=== PATIENT | female | born 1955 | race Caucasian/White ===

== ENCOUNTER 2020-11-19 07:20 | Outpatient (REF) | payer MEDICARE, SELFPAY ==
--- NOTE | ~2020-11-19 | MM_ITS ---
EXAMINATION: MM SCREENING DIGITAL BREAST TOMOSYNTHESIS, BILATERAL CLINICAL INFORMATION: Screening. Asymptomatic. The lifetime risk of breast cancer based on the Tyrer-Cuzick Model is 5%. COMPARISON: Mammography: 07/20/2019, 07/11/2019, 07/05/2018; targeted left breast ultrasound 07/20/2019 TECHNIQUE: Digital breast tomosynthesis is performed in both the craniocaudal and mediolateral oblique views along with computer-aided detection (CAD). Synthesized 2D images are generated from the tomosynthesis. Additional left MLO view is provided. FINDINGS: There are scattered areas of fibroglandular density (ACR BI-RADS breast composition Category b). Parenchymal pattern is similar to prior exams. There is no significant mass or architectural abnormality or abnormal calcifications. There is scattered fine bilateral nodularity. Nodule right 9:00 position mid depth has some peripheral calcifications again noted. The axilla and skin contours are unremarkable. MM/MM tomosynthesis screening BI IMPRESSION: No significant changes from prior exams. ASSESSMENT: BI-RADS 2: Benign RECOMMENDATION: Routine annual mammography screening. This patient's information was entered into a reminder system with a target due date for their next mammogram.
== END 2020-11-19 07:21 | disposition home or self-care (01) ==
LOC: HO.MAMMO 07:20
PROVIDERS: Visit Provider Internal Medicine
DX: Z12.31 Encounter for screening mammogram for malignant neoplasm of breast (principal)
CPT/HCPCS: 77063; 77067

== ENCOUNTER 2021-02-27 13:40 | Outpatient (REF) | payer MEDICARE, SELFPAY ==
--- NOTE | ~2021-02-27 | US_ITS ---
EXAMINATION: US VENOUS ULTRASOUND WITH DOPPLER LOWER EXTREMITY, LEFT CLINICAL INFORMATION: Left lower extremity swelling. Evaluate for a deep vein thrombosis. COMPARISON: None TECHNIQUE: Ultrasound of the deep veins is performed from the hip to the calf with compression sonography and color and pulse Doppler assessment. Spectral analysis with color-flow imaging is performed. FINDINGS: There is normal venous compression and respiratory variation and augmented flow. The visualized common femoral vein, superficial femoral vein, profunda femoral vein, popliteal vein, and the trifurcation region shows no evidence of deep venous thrombosis. There is no significant popliteal fossa cyst. If the patient's symptoms persist, followup ultrasound in 5 days 7 days might be of value to exclude proximal propagation from a non-visualized calf vein. US/US venous duplex LE LT IMPRESSION: No DVT demonstrated in the left lower extremity.
== END 2021-02-27 13:41 | disposition home or self-care (01) ==
LOC: HO.HMGCX 13:40
PROVIDERS: PCP Internal Medicine; Visit Provider Internal Medicine
DX: M79.89 Other specified soft tissue disorders (principal); E89.0 Postprocedural hypothyroidism
CPT/HCPCS: 93971

== ENCOUNTER 2021-03-08 07:39 | Outpatient (REF) | payer MEDICARE, SELFPAY ==
[2021-03-08 09:32] LABS: Alanine Aminotransferase 29 U/L (0-31); Albumin Level 4.1 g/dL (3.5-5.0); Alkaline Phosphatase 62 U/L (39-117); Anion Gap 14 (12-20); Aspartate Amino Transferase 22 U/L (5-31); Bilirubin Total 0.6 mg/dL (0.0-1.0); Blood Urea Nitrogen 26 mg/dL (9-16); Carbon Dioxide 27 mmol/L (22-29); Chloride 106 mmol/L (96-108); Cholesterol 179 mg/dL; Estimated Glomerular Filt Rate 55; Glucose Fasting 96 mg/dL (60-99); HDL Cholesterol 48 mg/dL; LDL Cholesterol Calculated 105 mg/dl; Potassium 4.5 mmol/L (3.3-5.1); Sodium 142 mmol/L (135-145); Total Protein 7.5 g/dL (6.5-8.0); Triglycerides 133 mg/dL
[2021-03-08 10:03] LABS: Thyroid Stimulating Hormone 2.73 uIU/mL (0.32-4.0)
== END 2021-03-08 07:40 | disposition home or self-care (01) ==
LOC: HO.LAB 07:39
PROVIDERS: PCP Internal Medicine; Visit Provider Internal Medicine
DX: E89.0 Postprocedural hypothyroidism (principal); E78.5 Hyperlipidemia, unspecified
CPT/HCPCS: 36415; 80053; 80061; 84443

== ENCOUNTER 2021-09-16 07:43 | Outpatient (REF) | payer MEDICARE, SELFPAY ==
[2021-09-16 08:43] LABS: Alanine Aminotransferase 22 U/L (0-31); Albumin Level 4.2 g/dL (3.5-5.0); Alkaline Phosphatase 67 U/L (39-117); Anion Gap 13 (12-20); Aspartate Amino Transferase 23 U/L (5-31); Bilirubin Total 0.6 mg/dL (0.0-1.0); Blood Urea Nitrogen 25 mg/dL (9-16); Calcium 10.8 mg/dL (8.4-10.2); Carbon Dioxide 30 mmol/L (22-29); Chloride 106 mmol/L (96-108); Cholesterol 163 mg/dL; Estimated Glomerular Filt Rate 55; Glucose Fasting 103 mg/dL (60-99); HDL Cholesterol 49 mg/dL; LDL Cholesterol Calculated 89 mg/dl; Potassium 4.7 mmol/L (3.3-5.1); Sodium 144 mmol/L (135-145); Total Protein 7.6 g/dL (6.5-8.0); Triglycerides 129 mg/dL
== END 2021-09-16 07:44 | disposition home or self-care (01) ==
LOC: HO.LAB 07:43
PROVIDERS: PCP Internal Medicine; Visit Provider Internal Medicine
DX: E78.5 Hyperlipidemia, unspecified (principal); E89.0 Postprocedural hypothyroidism
CPT/HCPCS: 36415; 80053; 80061; 84443

== ENCOUNTER 2021-09-29 09:16 | Outpatient (REF) | payer MEDICARE, SELFPAY ==
[2021-09-29 10:27] LABS: Alanine Aminotransferase 38 U/L (0-31); Albumin Level 4.1 g/dL (3.5-5.0); Alkaline Phosphatase 61 U/L (39-117); Anion Gap 14 (12-20); Aspartate Amino Transferase 29 U/L (5-31); Bilirubin Total 0.5 mg/dL (0.0-1.0); Blood Urea Nitrogen 18 mg/dL (9-16); Calcium 10.1 mg/dL (8.4-10.2); Carbon Dioxide 27 mmol/L (22-29); Chloride 105 mmol/L (96-108); Estimated Glomerular Filt Rate > 60; Glucose Random 100 mg/dL (60-115); Potassium 4.6 mmol/L (3.3-5.1); Sodium 141 mmol/L (135-145); Total Protein 7.4 g/dL (6.5-8.0)
[2021-09-29 10:49] LABS: Vitamin D 25-OH Total 29.2 ng/mL (>30)
[2021-10-02 09:41] LABS: Calcium, Ionized 5.2 mg/dL (4.8-5.6)
[2021-10-02 16:12] LABS: PTHI 24 pg/mL (16-77)
== END 2021-09-29 09:17 | disposition home or self-care (01) ==
LOC: HO.LAB 09:16
PROVIDERS: PCP Internal Medicine; Visit Provider Internal Medicine
DX: E83.52 Hypercalcemia (principal)
CPT/HCPCS: 36415; 80053; 82306; 82330; 83970

== ENCOUNTER 2021-11-25 07:17 | Outpatient (REF) | payer MEDICARE, SELFPAY ==
--- NOTE | ~2021-11-25 | MM_ITS ---
EXAMINATION: MM SCREENING DIGITAL BREAST TOMOSYNTHESIS, BILATERAL CLINICAL INFORMATION: Screening. Asymptomatic. No known family history breast cancer. The lifetime risk of breast cancer based on the Tyrer-Cuzick Model is 4%. COMPARISON: Mammography: 11/19/2020, 07/20/2019, 07/11/2019, 07/05/2018, 01/01/2018, 06/05/2017, 05/11/2015; left breast ultrasound 07/20/2019, 01/01/2018, 06/11/2017. TECHNIQUE: Digital breast tomosynthesis is performed in both the craniocaudal and mediolateral oblique views along with computer-aided detection (CAD). Synthesized 2D images are generated from the tomosynthesis. Additional right MLO view is provided. FINDINGS: There are scattered areas of fibroglandular density (ACR BI-RADS breast composition Category b). There is a fine fibronodular parenchymal pattern with additional small dominant smooth circumscribed nodularity, more numerous on left. No architectural abnormality. No abnormal calcifications. The axilla and skin contours are unremarkable. Left breast has 2 circumscribed dominant nodules each around 8 mm increased from prior studies, at central anterior 12:00 and central 1:00, respectively. Suspect probable cysts. MM/MM tomosynthesis screening BI IMPRESSION: Left: -Dominant nodularity increased central anterior 12:00 and mid 1:00, likely cysts. Right: -No significant change from prior exams. ASSESSMENT: BI-RADS 0: Incomplete - Need Additional Imaging Evaluation RECOMMENDATION: 1. Targeted ultrasound left breast with 2 dominant nodules, likely cysts. 2. Radiology department staff will contact the patient for additional imaging. This patient's information was entered into a reminder system with a target due date for their next mammogram.
== END 2021-11-25 07:18 | disposition home or self-care (01) ==
LOC: HO.MAMMO 07:17
PROVIDERS: PCP Internal Medicine; Visit Provider Internal Medicine
DX: Z12.31 Encounter for screening mammogram for malignant neoplasm of breast (principal)
CPT/HCPCS: 77063; 77067

== ENCOUNTER 2022-01-04 14:48 | Outpatient (REF) | payer MEDICARE, SELFPAY ==
--- NOTE | ~2022-01-04 | US_ITS ---
EXAMINATION: US DIAGNOSTIC ULTRASOUND BREAST, LEFT CLINICAL INFORMATION: Recall from screening for 2 circumscribed dominant nodules each around 0.8 cm central anterior 12:00 and central 1:00 left breast. COMPARISON: Mammography 11/25/2021, 11/19/2020, 07/20/2019, 07/11/2019, ultrasound left breast 07/20/2019, 12/13/2017, 06/11/2017. TECHNIQUE: Ultrasound left breast is performed with real-time lopez scale imaging and color Doppler without and with harmonics. Imaging is targeted to the upper quadrants. FINDINGS: The 2 dominant nodules noted on mammography are identified on ultrasound as incidental cysts, each just under 1 cm, anechoic, smooth, with increased through-transmission of sound. No associated color flow. They reside at 12:00 and 1:00 positions. There is no solid mass or architectural abnormality or duct ectasia. Results are discussed with the patient at time of visit. US/US breast LT limited IMPRESSION: There are 2 simple cysts under 1 cm upper left breast 12:00 and 1:00 position corresponding to the recent mammography. ASSESSMENT: BI-RADS 2: Benign RECOMMENDATION: Routine annual mammography screening. This patient's information was entered into a reminder system with a target due date for their next mammogram.
== END 2022-01-04 14:49 | disposition home or self-care (01) ==
LOC: HO.MAMMO 14:48
PROVIDERS: PCP Internal Medicine; Visit Provider Internal Medicine
DX: N63.25 Unspecified lump in the left breast, overlapping quadrants (principal); N63.21 Unspecified lump in the left breast, upper outer quadrant
CPT/HCPCS: 76642

== ENCOUNTER 2022-04-14 07:04 | Outpatient (REF) | payer MEDICARE, SELFPAY ==
[2022-04-14 08:28] LABS: Alanine Aminotransferase 39 U/L (0-31); Albumin Level 4.4 g/dL (3.5-5.0); Alkaline Phosphatase 71 U/L (39-117); Anion Gap 19 (12-20); Aspartate Amino Transferase 30 U/L (5-31); Bilirubin Total 0.6 mg/dL (0.0-1.0); Blood Urea Nitrogen 15 mg/dL (9-16); Calcium 10.2 mg/dL (8.4-10.2); Carbon Dioxide 24 mmol/L (22-29); Chloride 105 mmol/L (96-108); Cholesterol 175 mg/dL; Estimated Glomerular Filt Rate 57; Glucose Fasting 102 mg/dL (60-99); HDL Cholesterol 40 mg/dL; LDL Cholesterol Calculated 99 mg/dl; Potassium 4.5 mmol/L (3.3-5.1); Sodium 143 mmol/L (135-145); Total Protein 7.9 g/dL (6.5-8.0); Triglycerides 184 mg/dL
[2022-04-14 08:49] LABS: Thyroid Stimulating Hormone 1.87 uIU/mL (0.32-4.0)
== END 2022-04-14 07:05 | disposition home or self-care (01) ==
LOC: HO.LAB 07:04
PROVIDERS: PCP Internal Medicine; Visit Provider Internal Medicine
DX: E89.0 Postprocedural hypothyroidism (principal); E78.5 Hyperlipidemia, unspecified; E83.52 Hypercalcemia
CPT/HCPCS: 36415; 80053; 80061; 84443

== ENCOUNTER 2022-09-21 15:22 | Outpatient (REF) | payer MEDICARE, SELFPAY ==
[2022-09-21 16:25] LABS: Influenza A PCR NEGATIVE (Negative); Influenza B PCR NEGATIVE (Negative); Resp Syncy Virus RNA Qual PCR NEGATIVE (Negative); SARS COV2 PCR INHOUSE POSITIVE (Negative)
== END 2022-09-21 15:23 | disposition home or self-care (01) ==
LOC: HO.LAB 15:22
PROVIDERS: PCP Internal Medicine; Visit Provider Internal Medicine
DX: Z20.822 Contact with and (suspected) exposure to COVID-19 (principal); R09.89 Other specified symptoms and signs involving the circulatory and respiratory systems
CPT/HCPCS: 0241U

== ENCOUNTER 2022-10-13 07:01 | Outpatient (REF) | payer MEDICARE, SELFPAY ==
[2022-10-13 09:13] LABS: Alanine Aminotransferase 23 U/L (0-31); Albumin Level 4.3 g/dL (3.5-5.0); Alkaline Phosphatase 68 U/L (39-117); Anion Gap 15 (12-20); Aspartate Amino Transferase 23 U/L (5-31); Bilirubin Total 0.7 mg/dL (0.0-1.0); Blood Urea Nitrogen 20 mg/dL (9-16); Carbon Dioxide 28 mmol/L (22-29); Chloride 106 mmol/L (96-108); Cholesterol 193 mg/dL; Estimated Glomerular Filt Rate > 60; Glucose Fasting 104 mg/dL (60-99); HDL Cholesterol 43 mg/dL; LDL Cholesterol Calculated 108 mg/dl; Sodium 145 mmol/L (135-145); Total Protein 7.6 g/dL (6.5-8.0); Triglycerides 211 mg/dL
[2022-10-13 09:36] LABS: Free T4 (Free Thyroxine) 1.09 ng/dL (0.71-1.85); Thyroid Stimulating Hormone 1.76 uIU/mL (0.32-4.0)
== END 2022-10-13 07:02 | disposition home or self-care (01) ==
LOC: HO.LAB 07:01
PROVIDERS: PCP Internal Medicine; Visit Provider Internal Medicine
DX: E89.0 Postprocedural hypothyroidism (principal); E78.5 Hyperlipidemia, unspecified
CPT/HCPCS: 36415; 80053; 80061; 84439; 84443

== ENCOUNTER 2022-12-15 07:22 | Outpatient (REF) | payer MEDICARE, SELFPAY ==
--- NOTE | ~2022-12-15 | MM_ITS ---
EXAMINATION: MM SCREENING DIGITAL BREAST TOMOSYNTHESIS, BILATERAL CLINICAL INFORMATION: Screening. Asymptomatic. The lifetime risk of breast cancer based on the Tyrer-Cuzick Model is 5%. COMPARISON: Multiple prior mammography exams including most recent 11/25/2021; ultrasound left 01/04/2022. TECHNIQUE: Digital breast tomosynthesis is performed in both the craniocaudal and mediolateral oblique views along with computer-aided detection (CAD). Synthesized 2D images are generated from the tomosynthesis. FINDINGS: There are scattered areas of fibroglandular density (ACR BI-RADS breast composition Category b). There is fibronodular parenchymal pattern with scattered small smooth waxing and waning nodularity. No significant mass. No architectural abnormality. Stable grouped calcifications anterior 9:00 right breast overlies a small stable nodule. There are scattered vascular calcifications. No abnormal calcifications. The axilla and skin contours are unremarkable. No significant changes from prior exam. MM/MM tomosynthesis screening BI IMPRESSION: No mammographic evidence of malignancy. ASSESSMENT: BI-RADS 2: Benign RECOMMENDATION: Routine annual mammography screening. This patient's information was entered into a reminder system with a target due date for their next mammogram.
== END 2022-12-15 07:23 | disposition home or self-care (01) ==
LOC: HO.MAMMO 07:22
PROVIDERS: PCP Internal Medicine; Visit Provider Internal Medicine
DX: Z12.31 Encounter for screening mammogram for malignant neoplasm of breast (principal)
CPT/HCPCS: 77063; 77067

== ENCOUNTER 2023-03-15 07:54 | Outpatient (AMB) | payer MEDICARE, SELFPAY ==
--- NOTE | 2023-03-15 08:35 | AM.OFFVISMDC ---
Intake Vital Signs 03/15/23 08:36 Height 5 ft 5 in Weight 216 lb BMI 35.9 BP 130/88 Blood Pressure Location Lt brachial Position Sitting Pulse 80 Pulse Source Pulse Oximeter Pulse Oximetry (%) 97 Oxygen Delivery Method Room Air Intake Visit Reasons: SWV [id number] Allergies No Known Allergies Allergy (Verified 03/15/23 08:47) Medication List - Last Reconciled 03/15/23 by GLORIA Moralez losartan 50 mg PO DAILY 90 days lovastatin 40 mg PO DAILY 90 days HPI SWV G0439 HPI Details Patient is a 68-year-old female who presents today for subsequent wellness visit. Patient of Dr. Driver. Today we discussed patient's need for bone density screening. Mammogram normal 12/2022. Up-to-date with immunizations. Zoe of care was reviewed with the patient and she was provided with a screening schedule. Patient has a healthcare proxy in place and she will provide office with a copy, MOLST form is on file. [facility] Medical History (Updated 03/15/23 @ 08:52 by GLORIA Moralez) Bilateral primary osteoarthritis of knee Dyslipidemia Elevated blood pressure reading in office without diagnosis of hypertension Hypercalcemia Left leg swelling Obese Postoperative hypothyroidism Surgical History (Updated 03/15/23 @ 09:02 by GLORIA Moralez) History of colonoscopy History of thyroid surgery History of tonsillectomy and adenoidectomy Family History Father CVD (cardiovascular disease) CHF (congestive heart failure) Mother Chronic mental illness Alzheimers disease Family/Other FH: mental illness Social History Housing: House Alcohol intake: never Patient Tobacco Use Status: Never used Tobacco e-Cigarette/Vaping Use: Never Used Second Hand Smoke Exposure: No service: No Current occupational status: employed and retired Current occupational exposures/hazards: No Cognitive needs: No Hearing needs: No Vision needs: Yes Questionnaire Medicare Wellness Checkup What [age] 65-69 What gender do you identify with?: female During the past 4 weeks, how much have you been bothered by emotional problems such as feeling anxious, depressed, irritable, sad or downhearted, and blue?: not at all During the past 4 weeks, has your physical & emotional health limited your social activities with family, friends, neighbors, or groups?: not at all During the past 4 weeks, how much bodily pain have you generally had?: very mild pain During the past 4 weeks, was someone available to help you if you needed & wanted help?: yes, quite a bit During the past 4 weeks, what was the hardest physical activity you could do for at least 2 minutes?: moderate Can you get to places out of walking distance without help? (For eg., can you travel alone on buses, taxis or drive your car?): Yes Can you go shopping for groceries or clothes without someone's help?: Yes Can you prepare your own meals?: Yes Can you do your housework without help?: Yes Because of any health problems, do you need the help of another person with your personal care needs such as eating, bathing, dressing or getting around the house?: No Can you handle your own money without help?: Yes During the past 4 weeks, how would you rate your health in general?: good During the past 4 weeks how have things been going for you?: pretty well Are you having difficulties driving your car?: no Do you always fasten your seat belt when you are in a car?: yes, usually During past 4 weeks, have you been bothered by the following: never: Falling or dizzy when standing up, Sexual problems?, Trouble eating well?, Teeth or denture problems? and Problems using the telephone? and seldom: Tiredness or fatigue? Have you fallen 2 or more times in the past year?: No Are you afraid of falling?: No Are you a smoker?: no During the past 4 weeks, how many drinks of wine, beer, or other alcoholic beverages did you have?: no alcohol at all Do you exercise for about 20 minutes 3 or more times a week?: yes, some of the time Have you been given information to help with the following?: yes: Hazards in your house that might hurt you? and yes: Keeping track of your medications? How often do you have trouble taking medicines the way you have been told to take them?: I always take medicine as prescribed How confident are you that you can control & manage most of your health problems?: very confident What is your race?: White Mini Mental State Exam (MMSE) Orientation What is the (year) (season) (date) (day) (month)?: year, season, date, day and month Score Score: 5 Activity of Daily Living Bathing - sponge bath, tub bath or shower: receives no assistance (gets in/out by self, if usual bathing means Dressing - getting clothes from closets & drawers, including inner/outer garments & fasteners.: gets clothes & gets completely dressed without help Toileting - going to the 'toilet room' for urine/bowel elimination & cleaning self/arranging clothes: goes to toilet room, cleans self, arranges clothes without help Transfer: moves in & out of bed and chair without help (may use support object) Continence: controls urination/bowel movements completely by self Feeding: feeds self without help Total Score: 0 Information obtained from: patient Using telephone: independent Traveling: independent Shopping: independent Preparing meals: independent Housework: independent Taking medicine: independent Managing money: independent PHQ-9 Over the last 2 weeks, how often have you been bothered by any of the following problems? 1. Little interest or pleasure in doing things: not at all 2. Feeling down, depressed, or hopeless: not at all 3. Trouble falling or staying asleep, or sleeping too much: not at all 4. Feeling tired or having little energy: several days 5. Poor appetite or overeating: not at all 6. Feeling bad about yourself - or that you are a failure or have let yourself or your family down: not at all 7. Trouble concentrating on things, such as reading the newspaper or watching television: not at all 8. Moving or speaking so slowly that other people could have noticed. Or the opposite - being so fidgety or restless that you have been moving around a lot more than usual: not at all 9. Thoughts that you would be better off or of hurting yourself in some way: not at all Total score: 1 Depression Screening Interpretation: Negative 51506 - PHQ-9 Billing: Yes Source: Developed by Drs. Mauri Wilks, Thea Chew, Wyatt Alicea and colleagues, with an educational gillian from [employer]. Physical Exam Vital Signs: Last Vital Signs Pulse 80 03/15/23 08:36 BP 130/88 03/15/23 08:36 Pulse Ox 97 03/15/23 08:36 Oxygen Delivery Method Room Air 03/15/23 08:36 BMI result Body Mass Index 35.9 Const General: cooperative and no acute distress Orientation/consciousness: patient oriented x3 HEENT Other: Whisper test: pass Neuro Other: Balance: Normal Get up and walk: able to Romberg: negative Tandem gait: able to General: patient oriented x3 Assessment & Plan Assessment & Plan (1) Post-menopausal: Code(s): Z78.0 - Asymptomatic menopausal state (2) Impaired glucose tolerance: Code(s): R73.02 - Impaired glucose tolerance (oral) Plan: Fasting glucose 104 10/2022 Continue to monitor (3) Essential hypertension: Code(s): I10 - Essential (primary) hypertension Plan: Goal BP equal or less than 140/90 Continue losartan Low-sodium diet and weight loss (4) Medicare annual wellness visit, subsequent: Code(s): Z00.00 - Encounter for general adult medical examination without abnormal findings (5) Bilateral primary osteoarthritis of knee: Code(s): M17.0 - Bilateral primary osteoarthritis of knee Plan: Continue to follow-up with orthopedics (6) Obese: Code(s): E66.9 - Obesity, unspecified Plan: Healthy food choices and exercise as tolerated (7) Dyslipidemia: Code(s): E78.5 - Hyperlipidemia, unspecified Plan: Continue lovastatin Low-cholesterol diet (8) Postoperative hypothyroidism: Code(s): E89.0 - Postprocedural hypothyroidism Plan: Continue to follow-up with [facility] endocrinology Orders: Orders XR DEXA axial skeleton Today Z78.0 - Asymptomatic menopausal state Quality Reporting (2019) Depression/Bipolar (159/160/161/177) PHQ-9: Total score: 1 Coding Level of Care Code Medicare Subsequent (G0439) Diagnoses Post-menopausal Z78.0 Impaired glucose tolerance R73.02 Essential hypertension I10 Medicare annual wellness visit, subsequent Z00.00 Bilateral primary osteoarthritis of knee M17.0 Obese E66.9 Dyslipidemia E78.5 Postoperative hypothyroidism E89.0 CPT Codes Advance Care Planning - Advance Care Planning discussion: On file, no changes ([id number]) Advance Care Planning - Time spent: 1-15 minutes, on File ([id number]) Advance Care Planning Advance Care Planning discussion: On file, no changes Date of discussion: 03/15/23 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
[2023-03-15 08:36] VITALS: BP 130/88; PULSE 80; O2SAT 97; BMI 35.9
== END 2023-03-15 08:58 | disposition home or self-care (01) ==
PROVIDERS: PCP Internal Medicine; Visit Provider Nurse Practitioner Family
DX: Z00.00 Encounter for general adult medical examination without abnormal findings (principal); Z78.0 Asymptomatic menopausal state; R73.02 Impaired glucose tolerance (oral); I10 Essential (primary) hypertension; M17.0 Bilateral primary osteoarthritis of knee; E66.9 Obesity, unspecified; E78.5 Hyperlipidemia, unspecified; E89.0 Postprocedural hypothyroidism
CPT/HCPCS: 1123F; G0439

== ENCOUNTER 2023-03-28 13:54 | Outpatient (REF) | payer MEDICARE, SELFPAY ==
--- NOTE | ~2023-03-28 | MM_ITS ---
EXAMINATION: BONE DENSITOMETRY CLINICAL INDICATION: Asymptomatic menopausal state. COMPARISON: This is the patient's baseline examination. TECHNIQUE: Using a Vitals (vitals.com) DXA System (software version: 13.1) manufactured by [employer], dual-energy x-ray absorptiometry was performed of the lumbar spine and left hip. The images are of good technical quality. Summary results are attached. FINDINGS: LEFT FEMUR, NECK: BMD 0.976 g/cm2, Z-score 0.4, T-score -0.4, normal. LEFT FEMUR, TOTAL: BMD 1.088 g/cm2, Z-score 1.2, T-score 0.6, normal. AP SPINE L1-L4 (excluding L3): The data of L1-L4 has been changed to exclude the L3 vertebral body, because degenerative sclerosis at this level may cause overestimation of lumbar spine density. BMD 1.234 g/cm2, Z-score 1.1, T-score 0.5, normal. IDENTIFIED RISK FACTORS: Menopause. HISTORY OF FRACTURE: None listed. MEDICATIONS: Multivitamin. MM/XR DEXA axial skeleton IMPRESSION: 1. DIAGNOSIS: Normal bone density based on the lowest T-score value of -0.4 in the femoral neck applying World Health Organization criteria. 2. 10-YEAR FRACTURE RISK PREDICTION, FRAX: According to the guidelines, FRAX calculation should only be performed on patients in the osteopenia bone density category. Therefore, FRAX was not performed on this patient. 3. Treatment Recommendations: NOF guidelines recommend consideration for treatment in postmenopausal women and men age 50 and older presenting with the following: -A hip or vertebral (clinical or morphometric) fracture. -T-score less than or equal to -2.5 at the femoral neck or spine after appropriate evaluation to exclude secondary causes. -Low bone mass at the hip or spine and a 10-year fracture probability by FRAX of greater than or equal to 3% for hip fracture or greater than or equal to 20% for major osteoporotic fracture based on the [place] adapted WHO algorithm. 4. Other Recommendations: All treatment decisions require clinical judgment and consideration of individual patient factors, including patient preferences, comorbidities, previous drug use, risk factors not captured in the FRAX model (e.g. frailty, falls, vitamin D deficiency, increased bone turnover, interval significant decline in bone density) and possible under or overestimation of fracture risk by FRAX. FUTURE SCAN RECOMMENDATION: People with diagnosed cases of osteoporosis or at high risk for fracture should have regular bone mineral density tests. For patients eligible for Medicare, routine testing is allowed once every 2 years. The testing frequency can be increased to one year for patients who have rapidly progressing disease, those who are receiving or discontinuing medical therapy to restore bone mass, or have additional risk factors.
== END 2023-03-28 13:55 | disposition home or self-care (01) ==
LOC: HO.MAMMO 13:54
PROVIDERS: PCP Internal Medicine; Visit Provider Nurse Practitioner Family
DX: Z13.820 Encounter for screening for osteoporosis (principal); Z78.0 Asymptomatic menopausal state
CPT/HCPCS: 77080

== ENCOUNTER → 2023-03-28 14:30 | Outpatient (BNV) | payer MEDICARE, SELFPAY | PROVIDERS: PCP Internal Medicine; Visit Provider Radiology Diagnostic Radiology | DX: Z78.0 Asymptomatic menopausal state (principal) | CPT/HCPCS: 77080 ==

== ENCOUNTER 2023-04-17 15:44 | Outpatient (AMB) | payer MEDICARE, SELFPAY ==
--- NOTE | 2023-04-17 15:48 | MHC.PC.OV ---
Vital Signs 04/17/23 15:49 Height 5 ft 5 in Weight 214 lb BMI 35.6 BP 128/70 Blood Pressure Location Lt brachial Position Sitting Pulse 106 H Pulse Source Auscultation Intake Visit Reasons: bp Intake Note: Patient here for a follow up BP Ginning Operator Required: No Accompanied by: Self / Same As Patient Allergies No Known Allergies Allergy (Verified 04/17/23 15:55) Medication List - Last Reconciled 04/17/23 by Marilou Reed MD losartan 50 mg PO DAILY 90 days lovastatin 40 mg PO DAILY 90 days Tobacco use date assessed: 07/19/22 Fall risk assessment: No Falls in past year Last assessed Fall Risk: 04/17/23 Dental Screening Dental Screen Date: 04/17/23 Did you have a dental visit in the last 12 months?: Yes Did you have a dental problem in the last 6 months where you did not have access to dental care?: No Was dental information given to patient?: Patient has dentist HPI HPI Comments History of Present Illness Details This is a 68-year-old female with hypertension and dyslipidemia that comes today for follow-up on blood pressure. Compliant with medications. Denies any chest pain or shortness of breath. Blood pressure stable. Last cholesterol was well control. [facility] Medical History Hypercalcemia Bilateral primary osteoarthritis of knee Elevated blood pressure reading in office without diagnosis of hypertension Left leg swelling Obese Dyslipidemia Postoperative hypothyroidism Surgical History History of colonoscopy History of thyroid surgery History of tonsillectomy and adenoidectomy Family History Father CVD (cardiovascular disease) CHF (congestive heart failure) Mother Chronic mental illness Alzheimers disease Family/Other FH: mental illness Social History Housing: House Alcohol intake: never Patient Tobacco Use Status: Never used Tobacco e-Cigarette/Vaping Use: Never Used Second Hand Smoke Exposure: No service: No Current occupational status: employed and retired Current occupational exposures/hazards: No Cognitive needs: No Hearing needs: No Vision needs: Yes Questionnaire Thrive Questionnaire Date Thrive assessed: 07/19/22 BALBIR-7 AMB Questionnaire BALBIR-7 Date BALBIR - 7 assessed: 07/19/22 Source: Developed by Drs. Mauri Wilks, Thea Chew, Wyatt Alicea and colleagues, with an educational gillian from [employer]. Review of Systems Const All systems reviewed & are unremarkable except as noted in HPI and below Eyes Reports no additional complaints, Denies change in vision and Denies other visual disturbances Card Denies chest pain at rest, Denies chest pain with activity, Denies edema, Denies irregular heart rhythm, Denies claudication, Denies dyspnea, Denies dyspnea on exertion, Denies orthopnea, Denies paroxysmal nocturnal dyspnea and Denies slow heart rate Resp Denies cough, Denies dyspnea and Denies dyspnea on exertion GI Denies abdominal pain, Denies change in bowel habits, Denies excessive flatus, Denies nausea and Denies vomiting Denies urinary incontinence, Denies urinary hesitancy and Denies urinary urgency Musc Denies abnormal gait, Denies atrophy, Denies deformity and Denies limited range of motion Skin/Breast Denies bleeding lesions, Denies changing lesions and Denies rash Neuro Denies abnormal gait and Denies lack of coordination Physical exam (Primary Care) Vital Signs: Last Vital Signs BP 128/70 04/17/23 15:49 BMI result Body Mass Index 35.6 Tobacco/Smoking Status: Tobacco use Status Tobacco use date assessed 07/19/22 04/17/23 15:51 Patient Tobacco Use Status Never used Tobacco 04/17/23 15:51 e-Cigarette/Vaping Use Never Used 04/17/23 15:51 Thrive Assessment: Date of Thrive Assessment Date Thrive assessed 07/19/22 04/17/23 15:51 Eyes General: appearance normal, both eyes and all related structures Eyelids: Yes eyelids normal Conjunctivae: conjunctivae normal Neck Neck: Yes normal visual inspection and Yes supple Resp Effort & Inspection: normal respiratory effort Auscultation: clear to auscultation bilaterally Cardio Jugular venous distension: no JVD Rate: regular rate Rhythm: regular rhythm Heart sounds: S1 normal heart sound present and S2 normal heart sound present Extrem General: Yes full ROM Assessment and Plan Assessment & Plan (1) Essential hypertension: Code(s): I10 - Essential (primary) hypertension Plan: Continue losartan. Blood pressure goal is equal or less than 130/80. (2) Dyslipidemia: Code(s): E78.5 - Hyperlipidemia, unspecified Plan: Continue statins. Coding Level of Care Code Est Pt Level 3 (79214) Diagnoses Essential hypertension I10 Dyslipidemia E78.5 Time Spent (min) 18
[2023-04-17 15:49] VITALS: BP 128/70; PULSE 106; BMI 35.6
== END 2023-04-17 16:02 | disposition home or self-care (01) ==
PROVIDERS: PCP Internal Medicine; Visit Provider Internal Medicine
DX: I10 Essential (primary) hypertension (principal); E78.5 Hyperlipidemia, unspecified
CPT/HCPCS: 99213

== ENCOUNTER 2023-08-26 10:30 | Outpatient (REF) | payer MEDICARE, SELFPAY ==
[2023-08-26 11:38] VITALS: BP 180/86; PULSE 93; RESP 17; TEMP 36.6; O2SAT 98
[2023-08-26 13:44] VITALS: BMI 33.5
== END 2023-08-26 10:31 | disposition home or self-care (01) ==
LOC: HO.MS 10:30
PROVIDERS: PCP Internal Medicine; Visit Provider Ophthalmology
DX: H00.11 Chalazion right upper eyelid (principal); Z53.9 Procedure and treatment not carried out, unspecified reason

== ENCOUNTER 2023-10-28 07:44 | Outpatient (AMB) | payer MEDICARE, SELFPAY ==
[2023-10-28 07:45] VITALS: BP 136/80; BMI 36.7
--- NOTE | 2023-10-28 07:45 | MHC.PC.OV ---
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: No Accompanied by: Self / Same As Patient Allergies No Known Allergies Allergy (Verified 10/28/23 07:48) Medication List - Last Reconciled 10/28/23 by Marilou Reed MD losartan 50 mg PO DAILY 90 days lovastatin 40 mg PO DAILY 90 days Tobacco use date assessed: 10/28/23 Fall risk assessment: No Falls in past year Last assessed Fall Risk: 10/28/23 Dental Screening Dental Screen Date: 10/28/23 Did you have a dental visit in the last 12 months?: Yes Did you have a dental problem in the last 6 months where you did not have access to dental care?: No Was dental information given to patient?: Patient has dentist HPI HPI Comments History of Present Illness Details This is a 68-year-old female with hypertension and dyslipidemia that comes today for follow-up on her conditions. Blood pressure stable. Last cholesterol was well control and this will be repeated for the next office visit. She denies any chest pain or shortness of breath. She is obese with a BMI of 36.7 and was advised to do diet and exercise to reach BMI goal less than 30. [facility] Medical History Hypercalcemia Bilateral primary osteoarthritis of knee Elevated blood pressure reading in office without diagnosis of hypertension Left leg swelling Obese Dyslipidemia Postoperative hypothyroidism Surgical History History of colonoscopy History of thyroid surgery History of tonsillectomy and adenoidectomy Family History Father CVD (cardiovascular disease) CHF (congestive heart failure) Mother Chronic mental illness Alzheimers disease Family/Other FH: mental illness Social History Housing: House Alcohol intake: never Patient Tobacco Use Status: Never used Tobacco e-Cigarette/Vaping Use: Never Used Second Hand Smoke Exposure: No service: No Current occupational status: employed and retired Current occupational exposures/hazards: No Cognitive needs: No Hearing needs: No Vision needs: Yes Questionnaire PHQ-9 Over the last 2 weeks, how often have you been bothered by any of the following problems? 1. Little interest or pleasure in doing things: not at all 2. Feeling down, depressed, or hopeless: not at all 3. Trouble falling or staying asleep, or sleeping too much: not at all 4. Feeling tired or having little energy: not at all 5. Poor appetite or overeating: not at all 6. Feeling bad about yourself - or that you are a failure or have let yourself or your family down: not at all 7. Trouble concentrating on things, such as reading the newspaper or watching television: not at all 8. Moving or speaking so slowly that other people could have noticed. Or the opposite - being so fidgety or restless that you have been moving around a lot more than usual: not at all 9. Thoughts that you would be better off or of hurting yourself in some way: not at all Total score: 0 Depression Screening Interpretation: Negative Depression Screening Done: Yes 47426 - PHQ-9 Billing: Yes Source: Developed by Drs. Mauri Wilks, Thea Chew, Wyatt Alicea and colleagues, with an educational gillian from [employer]. Thrive Questionnaire Date Thrive assessed: 10/28/23 I am a: Patient What is your living situation today?: I have a steady place to live Within the past 12 months, did the food you bought not last and you didn't have the money to get more?: Never true Within the past 12 months, did you worry whether your food would run out before you got money to buy more?: Never true Do you have trouble paying for medicines?: No Do you have trouble getting transportation to medical appointments?: No Do you have trouble paying your heating and electricity bill?: No Do you have trouble taking care of your child, family member or friend?: No Do you have trouble with day-to-day activities such as bathing, preparing meals, shopping, managing finances, etc.?: No Are you currently unemployed and looking for a job?: No Are you interested in more education?: No Please select the resources that you would like help with: None Currently or been in a relationship where the following occur: no concerns reported THRIVE Score: 0 AUDIT C Alcohol Use Questionnaire (AUDIT-C) 1. How often do you have a drink containing alcohol?: Never Total Score: 0 BALBIR-7 AMB Questionnaire BALBIR-7 Date BALBIR - 7 assessed: 10/28/23 Feeling nervous, anxious, or on edge: 0 = Not at all Not being able to stop or control worryin = Not at all Worrying too much about different things: 0 = Not at all Trouble relaxin = Not at all Being so restless that it is hard to sit still: 0 = Not at all Becoming easily annoyed or irritable: 0 = Not at all Feeling afraid as if something awful might happen: 0 = Not at all Total BALBIR-7 score (0-4 normal; 5-9 mild; 10-14 moderate; 15-21 severe): 0 Source: Developed by Drs. Mauri Wilks, Thea Chew, Wyatt Alicea and colleagues, with an educational gillian from [employer]. BALBIR-7 Assessment Billing BALBIR-7 Assessment Tool: BALBIR-7 Assessment 09893 Review of Systems Const All systems reviewed & are unremarkable except as noted in HPI and below Eyes Reports no additional complaints, Denies change in vision and Denies other visual disturbances Card Denies chest pain at rest, Denies chest pain with activity, Denies edema, Denies irregular heart rhythm, Denies claudication, Denies dyspnea, Denies dyspnea on exertion, Denies orthopnea, Denies paroxysmal nocturnal dyspnea and Denies slow heart rate Resp Denies cough, Denies dyspnea and Denies dyspnea on exertion GI Denies abdominal pain, Denies change in bowel habits, Denies excessive flatus, Denies nausea and Denies vomiting Denies urinary incontinence, Denies urinary hesitancy and Denies urinary urgency Physical exam (Primary Care) Vital Signs: Last Vital Signs BP 136/80 10/28/23 07:45 BMI result Body Mass Index 36.7 Tobacco/Smoking Status: Tobacco use Status Tobacco use date assessed 10/28/23 10/28/23 07:53 Patient Tobacco Use Status Never used Tobacco 10/28/23 07:53 e-Cigarette/Vaping Use Never Used 10/28/23 07:53 PHQ-9: PHQ-9 Score PHQ-9: Total score 0 10/28/23 07:53 Depression Screening Interpretation: Negative Thrive Assessment: Date of Thrive Assessment Date Thrive assessed 10/28/23 10/28/23 07:53 Currently or been in a relationship where the following occur: no concerns reported Resp Effort & Inspection: normal respiratory effort Auscultation: clear to auscultation bilaterally Cardio Jugular venous distension: no JVD Rate: regular rate Rhythm: regular rhythm Heart sounds: S1 normal heart sound present and S2 normal heart sound present Extrem General: Yes full ROM Assessment and Plan Assessment & Plan (1) Essential hypertension: Code(s): I10 - Essential (primary) hypertension Plan: Continue losartan 50 mg once a day. Blood pressure goal is equal or less than 130/80. (2) Dyslipidemia: Code(s): E78.5 - Hyperlipidemia, unspecified Plan: Continue statins. Orders: Orders Comprehensive [place]. Panel Fast 5 Months I10 - Essential (primary) hypertension Thyroid Stimulating Hormone 5 Months E89.0 - Postprocedural hypothyroidism Lipid Panel 5 Months E78.5 - Hyperlipidemia, unspecified Coding Level of Care Code Est Pt Level 3 (78036) Diagnoses Essential hypertension I10 Dyslipidemia E78.5 Additional Codes BALBIR-7 Assessment Billing - BALBIR-7 Assessment Tool: BALBIR-7 Assessment 35436 ([id number]) Time Spent (min) 19
== END 2023-10-28 08:03 | disposition home or self-care (01) ==
PROVIDERS: PCP Internal Medicine; Visit Provider Internal Medicine
DX: I10 Essential (primary) hypertension (principal); E78.5 Hyperlipidemia, unspecified
CPT/HCPCS: 99213

== ENCOUNTER 2023-12-30 11:44 | Outpatient (REF) | payer MEDICARE, SELFPAY | END 2023-12-30 11:45 | disposition home or self-care (01) | LOC: HO.MAMMO 11:44 | PROVIDERS: PCP Internal Medicine; Visit Provider Internal Medicine | DX: Z12.31 Encounter for screening mammogram for malignant neoplasm of breast (principal) | CPT/HCPCS: 77063; 77067 ==

== ENCOUNTER → 2023-12-30 12:00 | Outpatient (BNV) | payer MEDICARE, SELFPAY | PROVIDERS: PCP Internal Medicine; Visit Provider Radiology Diagnostic Radiology | DX: Z12.31 Encounter for screening mammogram for malignant neoplasm of breast (principal) | CPT/HCPCS: 77063; 77067 ==

== ENCOUNTER 2024-02-21 08:36 | Outpatient (REF) | payer MEDICARE, SELFPAY ==
[2024-02-21 09:55] LABS: Alanine Aminotransferase 31 U/L (0-31); Albumin Level 4.2 g/dL (3.5-5.0); Alkaline Phosphatase 63 U/L (39-117); Anion Gap 13 (12-20); Aspartate Amino Transferase 29 U/L (5-31); Bilirubin Total 0.7 mg/dL (0.0-1.0); Blood Urea Nitrogen 15 mg/dL (9-16); Calcium 10.6 mg/dL (8.4-10.2); Carbon Dioxide 27 mmol/L (22-29); Chloride 106 mmol/L (96-108); Cholesterol 162 mg/dL (<200); Estimated Glomerular Filt Rate > 60; Glucose Fasting 105 mg/dL (60-99); HDL Cholesterol 44 mg/dL (>40); LDL Cholesterol Calculated 83 mg/dL (<100); Sodium 142 mmol/L (135-145); Total Protein 7.8 g/dL (6.5-8.0); Triglycerides 175 mg/dL (<150)
[2024-02-21 10:14] LABS: Thyroid Stimulating Hormone 1.68 uIU/mL (0.32-4.0)
== END 2024-02-21 08:37 | disposition home or self-care (01) ==
LOC: HO.LAB 08:36
PROVIDERS: PCP Internal Medicine; Visit Provider Internal Medicine
DX: I10 Essential (primary) hypertension (principal); E89.0 Postprocedural hypothyroidism; E78.5 Hyperlipidemia, unspecified
CPT/HCPCS: 36415; 80053; 80061; 84443

== ENCOUNTER 2024-03-25 08:06 | Outpatient (AMB) | payer MEDICARE, SELFPAY ==
[2024-03-25 08:17] VITALS: BP 132/76; BMI 37.1
--- NOTE | 2024-03-25 08:17 | AM.OFFVISMDC ---
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 Colonoscopy done 2018 and was normal. Immunizations up-to-date. Mammogram done less than a year ago and was normal. DEXA scan done 2022 and next DEXA will be 2024. No need for Pap smears due to age. Ppp handed to patient. Healthcare proxy is her son. [place] of care updated. [facility] Medical History (Updated 03/25/24 @ 13:15 by Marilou Reed MD) Hypercalcemia Bilateral primary osteoarthritis of knee Elevated blood pressure reading in office without diagnosis of hypertension Left leg swelling Obese Dyslipidemia Postoperative hypothyroidism Surgical History History of colonoscopy History of thyroid surgery History of tonsillectomy and adenoidectomy Family History Father CVD (cardiovascular disease) CHF (congestive heart failure) Mother Chronic mental illness Alzheimers disease Family/Other FH: mental illness Social History Housing: House Alcohol intake: never Patient Tobacco Use Status: Never used Tobacco e-Cigarette/Vaping Use: Never Used Second Hand Smoke Exposure: No service: No Current occupational status: employed and retired Current occupational exposures/hazards: No Cognitive needs: No Hearing needs: No Vision needs: Yes Questionnaire Medicare Wellness Checkup What [age] What gender do you identify with?: female During the past 4 weeks, how much have you been bothered by emotional problems such as feeling anxious, depressed, irritable, sad or downhearted, and blue?: slightly During the past 4 weeks, has your physical & emotional health limited your social activities with family, friends, neighbors, or groups?: not at all During the past 4 weeks, how much bodily pain have you generally had?: very mild pain During the past 4 weeks, was someone available to help you if you needed & wanted help?: yes, as much as I wanted During the past 4 weeks, what was the hardest physical activity you could do for at least 2 minutes?: heavy Can you get to places out of walking distance without help? (For eg., can you travel alone on buses, taxis or drive your car?): Yes Can you go shopping for groceries or clothes without someone's help?: Yes Can you prepare your own meals?: Yes Can you do your housework without help?: Yes Because of any health problems, do you need the help of another person with your personal care needs such as eating, bathing, dressing or getting around the house?: No Can you handle your own money without help?: Yes During the past 4 weeks, how would you rate your health in general?: very good During the past 4 weeks how have things been going for you?: pretty well Are you having difficulties driving your car?: no Do you always fasten your seat belt when you are in a car?: yes, usually During past 4 weeks, have you been bothered by the following: never: Falling or dizzy when standing up, Sexual problems?, Trouble eating well?, Teeth or denture problems?, Problems using the telephone? and Tiredness or fatigue? Have you fallen 2 or more times in the past year?: No Are you afraid of falling?: No Are you a smoker?: no During the past 4 weeks, how many drinks of wine, beer, or other alcoholic beverages did you have?: no alcohol at all Do you exercise for about 20 minutes 3 or more times a week?: yes, most of the time Have you been given information to help with the following?: no: Hazards in your house that might hurt you? and no: Keeping track of your medications? How often do you have trouble taking medicines the way you have been told to take them?: I do not have to take medicine How confident are you that you can control & manage most of your health problems?: very confident What is your race?: White Mini Mental State Exam (MMSE) Orientation What is the (year) (season) (date) (day) (month)?: year, season, date, day and month Where are we (state) (county) (town or city) (hospital) (floor)?: state, county, town or city, hospital/clinic and floor Registration Name of 3 unrelated objects clearly and slowly, then ask patient to repeat all 3 of them. (1st repeat determines score. Make sure they can repeat all three): object 1, object 2 and object 3 Attention & Calculation (CHOOSE ONE) Spell WORLD backwards (DLROW): 5 letters Recall Ask patient to repeat the 3 items from question #3.: object 1, object 2 and object 3 Language Show patient a wristwatch & ask what it is. Repeat for pencil.: watch and pencil Ask the patient to repeat the phrase 'No ifs, ands, or buts' after you.: correct Ask the patient to 'take a piece of paper with their right hand' 'fold paper in half' 'place paper on floor': take paper in right hand, fold paper in half and place paper on floor Print the sentence 'CLOSE YOUR EYES' on a piece. If patient actually closes eyes then score.: followed written direction Give patient a blank piece of paper & ask to write a sentence. Score if it contains a noun & verb.: sentence contains subject and verb Ask patient to copy figure of intersecting pentagons exactly. Score if all 10 angles & 2 intersects are included.: all 10 angles present & 2 are intersected Score Score: 30 Activity of Daily Living Bathing - sponge bath, tub bath or shower: receives no assistance (gets in/out by self, if usual bathing means Dressing - getting clothes from closets & drawers, including inner/outer garments & fasteners.: gets clothes & gets completely dressed without help Transfer: moves in & out of bed and chair without help (may use support object) Continence: controls urination/bowel movements completely by self Feeding: feeds self without help Total Score: 0 Information obtained from: patient Using telephone: independent Traveling: independent Shopping: independent Preparing meals: independent Housework: independent Taking medicine: independent Managing money: independent PHQ-9 Over the last 2 weeks, how often have you been bothered by any of the following problems? 1. Little interest or pleasure in doing things: not at all 2. Feeling down, depressed, or hopeless: not at all 3. Trouble falling or staying asleep, or sleeping too much: not at all 4. Feeling tired or having little energy: not at all 5. Poor appetite or overeating: not at all 6. Feeling bad about yourself - or that you are a failure or have let yourself or your family down: not at all 7. Trouble concentrating on things, such as reading the newspaper or watching television: not at all 8. Moving or speaking so slowly that other people could have noticed. Or the opposite - being so fidgety or restless that you have been moving around a lot more than usual: not at all 9. Thoughts that you would be better off or of hurting yourself in some way: not at all Total score: 0 Depression Screening Interpretation: Negative Depression Screening Done: Yes 74840 - PHQ-9 Billing: Yes Source: Developed by Drs. Mauri Wilks, Thea Chew, Wyatt Alicea and colleagues, with an educational gillian from [employer]. Fall Risk Assessment Fall Risk Assessment Fall risk assessment: No Falls in past year Thrive Questionnaire Date Thrive assessed: 03/25/24 I am a: Patient What is your living situation today?: I have a steady place to live Within the past 12 months, did the food you bought not last and you didn't have the money to get more?: Never true Within the past 12 months, did you worry whether your food would run out before you got money to buy more?: Never true Do you have trouble paying for medicines?: No Do you have trouble getting transportation to medical appointments?: No Do you have trouble paying your heating and electricity bill?: No Do you have trouble taking care of your child, family member or friend?: No Do you have trouble with day-to-day activities such as bathing, preparing meals, shopping, managing finances, etc.?: No Are you currently unemployed and looking for a job?: No Are you interested in more education?: No Please select the resources that you would like help with: None Currently or been in a relationship where the following occur: No concerns reported THRIVE Score: 0 AUDIT C Alcohol Use Questionnaire (AUDIT-C) 1. How often do you have a drink containing alcohol?: Never Total Score: 0 BALBIR-7 AMB Questionnaire BALBIR-7 Date BALBIR - 7 assessed: 03/25/24 Feeling nervous, anxious, or on edge: 0 = Not at all Not being able to stop or control worryin = Not at all Worrying too much about different things: 0 = Not at all Trouble relaxin = Not at all Being so restless that it is hard to sit still: 0 = Not at all Becoming easily annoyed or irritable: 0 = Not at all Feeling afraid as if something awful might happen: 0 = Not at all Total BALBIR-7 score (0-4 normal; 5-9 mild; 10-14 moderate; 15-21 severe): 0 Source: Developed by Drs. Mauri Wilks, Thea Chew, Wyatt Alicea and colleagues, with an educational gillian from [employer]. BALBIR-7 Assessment Billing BALBIR-7 Assessment Tool: BALBIR-7 Assessment 88417 Review of Systems Const All systems reviewed & are unremarkable except as noted in HPI and below Card Denies chest pain at rest, Denies chest pain with activity, Denies edema, Denies irregular heart rhythm, Denies claudication, Denies dyspnea, Denies dyspnea on exertion, Denies orthopnea, Denies paroxysmal nocturnal dyspnea and Denies slow heart rate Resp Denies cough, Denies dyspnea and Denies dyspnea on exertion GI Denies abdominal pain, Denies change in bowel habits, Denies excessive flatus, Denies nausea and Denies vomiting Denies urinary incontinence, Denies urinary hesitancy and Denies urinary urgency Musc Denies abnormal gait Neuro Denies abnormal gait and Denies lack of coordination Physical Exam Vital Signs: Last Vital Signs BP 132/76 03/25/24 08:17 BMI result Body Mass Index 37.1 Const Orientation/consciousness: patient oriented x3 Resp Effort & Inspection: normal respiratory effort Auscultation: clear to auscultation bilaterally Cardio Jugular venous distension: no JVD Rate: regular rate Rhythm: regular rhythm Heart sounds: S1 normal heart sound present and S2 normal heart sound present Neuro General: patient oriented x3 and no focal motor deficits Cognition (Neuro): normal cognition Gait exam (Neuro): Normal gait present Romberg Test: Negative Extrem General: Yes full ROM Psych Appearance: grossly normal Assessment & Plan Assessment & Plan (1) Encounter for Medicare annual wellness exam: Code(s): Z00.00 - Encounter for general adult medical examination without abnormal findings Plan: Repeat in a year. Orders: Orders Lipid Panel 5 Months E78.5 - Hyperlipidemia, unspecified, I10 - Essential (primary) hypertension Comprehensive [place]. Panel Fast 5 Months I10 - Essential (primary) hypertension Quality Reporting (2019) Fall Risk Screening ([facility] 139) Fall risk assessment: No Falls in past year Depression/Bipolar (159/160/161/177) PHQ-9: Total score: 0 Coding Level of Care Code Medicare Subsequent (G0439) Diagnoses Encounter for Medicare annual wellness exam Z00.00 CPT Codes Advance Care Planning - Advance Care Planning discussion: On file, no changes ([id number]) Advance Care Planning - Time spent: 1-15 minutes, on File ([id number]) Additional Codes BALBIR-7 Assessment Billing - BALBIR-7 Assessment Tool: BALBIR-7 Assessment 73300 ([id number]) Time Spent (min) 32 Advance Care Planning Advance Care Planning discussion: On file, no changes Date of discussion: 03/25/24 Who was present: patient and me Forms completed: MOLST Time spent: 1-15 minutes, on File Actual minutes spent: 2
== END 2024-03-25 08:49 | disposition home or self-care (01) ==
PROVIDERS: PCP Internal Medicine; Visit Provider Internal Medicine
DX: Z00.00 Encounter for general adult medical examination without abnormal findings (principal)
CPT/HCPCS: 1123F; G0439

== ENCOUNTER 2024-12-31 16:03 | Outpatient (AMB) | payer MEDICARE, SELFPAY ==
--- NOTE | 2024-12-31 16:34 | A.OFFPC_ITS ---
Vital Signs 12/31/24 16:35 Height 5 ft 4 in Weight 207 lb BMI 35.5 BP 130/78 Blood Pressure Location Lt brachial Position Sitting Intake Visit Reasons: BP Intake Note: Patient here for a follow up BP County Records Management Officer Required: No Accompanied by: Self / Same As Patient Allergies No Known Allergies Allergy (Verified 12/31/24 16:41) Medication List - Last Reconciled 12/31/24 by Marilou Reed MD losartan 50 mg PO DAILY 90 days lovastatin 40 mg PO DAILY 90 days Tobacco use date assessed: 12/31/24 Fall risk assessment: No Falls in past year Last assessed Fall Risk: 12/31/24 Dental Screening Dental Screen Date: 12/31/24 Did you have a dental visit in the last 12 months?: No Did you have a dental problem in the last 6 months where you did not have access to dental care?: No Was dental information given to patient?: Patient has dentist HPI HPI Comments History of Present Illness Details The patient is a 69-year-old female presenting with hypertension management and preventative care. Her blood pressure is well-controlled, and she has intentionally lost weight, which may be contributing to this improvement. She has impaired glucose tolerance and blood glucose will be repeated. Denies any polyuria or polydipsia. She also has postoperative hypothyroidism and TSH will be ordered. She has a history of hyperlipidemia and is compliant with her lovastatin regimen, experiencing no side effects. Preventative care includes a bone density screening planned for March and a mammogram scheduled for this year. [facility] Medical History Hypercalcemia Bilateral primary osteoarthritis of knee Elevated blood pressure reading in office without diagnosis of hypertension Left leg swelling Obese Dyslipidemia Postoperative hypothyroidism Surgical History History of colonoscopy History of thyroid surgery History of tonsillectomy and adenoidectomy Family History Father CVD (cardiovascular disease) CHF (congestive heart failure) Mother Chronic mental illness Alzheimers disease Family/Other FH: mental illness Social History Housing: House Alcohol intake: never Patient Tobacco Use Status: Never used Tobacco e-Cigarette/Vaping Use: Never Used Second Hand Smoke Exposure: No service: No Current occupational status: employed and retired Current occupational exposures/hazards: No Cognitive needs: No Hearing needs: No Vision needs: Yes Questionnaire PHQ-9 Over the last 2 weeks, how often have you been bothered by any of the following problems? 1. Little interest or pleasure in doing things: not at all 2. Feeling down, depressed, or hopeless: not at all 3. Trouble falling or staying asleep, or sleeping too much: not at all 4. Feeling tired or having little energy: not at all 5. Poor appetite or overeating: not at all 6. Feeling bad about yourself - or that you are a failure or have let yourself or your family down: not at all 7. Trouble concentrating on things, such as reading the newspaper or watching television: not at all 8. Moving or speaking so slowly that other people could have noticed. Or the opposite - being so fidgety or restless that you have been moving around a lot more than usual: not at all 9. Thoughts that you would be better off or of hurting yourself in some way: not at all Total score: 0 Depression Screening Interpretation: Negative Depression Screening Done: Yes 71568 - PHQ-9 Billing: Yes Source: Developed by Drs. Mauri Wilks, Thea Chew, Wyatt Alicea and colleagues, with an educational gillian from [employer]. Thrive Questionnaire Date Thrive assessed: 12/24/24 I am a: Patient What is your living situation today?: I have a steady place to live Within the past 12 months, did the food you bought not last and you didn't have the money to get more?: Never true Within the past 12 months, did you worry whether your food would run out before you got money to buy more?: Never true Do you have trouble paying for medicines?: No Do you have trouble getting transportation to medical appointments?: No Do you have trouble paying your heating and electricity bill?: No Do you have trouble taking care of your child, family member or friend?: I choose not to answer this question Do you have trouble with day-to-day activities such as bathing, preparing meals, shopping, managing finances, etc.?: No Are you currently unemployed and looking for a job?: No Are you interested in more education?: No Please select the resources that you would like help with: None Currently or been in a relationship where the following occur: No concerns reported THRIVE Score: 0 AUDIT C Alcohol Use Questionnaire (AUDIT-C) 1. How often do you have a drink containing alcohol?: Never Total Score: 0 Score Reviewed/Action Taken: No BALBIR-7 AMB Questionnaire BALBIR-7 Date BALBIR - 7 assessed: 12/31/24 Feeling nervous, anxious, or on edge: 0 = Not at all Not being able to stop or control worryin = Not at all Worrying too much about different things: 0 = Not at all Trouble relaxin = Not at all Being so restless that it is hard to sit still: 0 = Not at all Becoming easily annoyed or irritable: 0 = Not at all Feeling afraid as if something awful might happen: 0 = Not at all Total BALBIR-7 score (0-4 normal; 5-9 mild; 10-14 moderate; 15-21 severe): 0 Source: Developed by Drs. Mauri Wilks, Thea Chew, Wyatt Alicea and colleagues, with an educational gillian from [employer]. BALBIR-7 Assessment Billing BALBIR-7 Assessment Tool: BALBIR-7 Assessment 90292 Review of Systems Const All systems reviewed & are unremarkable except as noted in HPI and below Card Denies chest pain at rest, Denies chest pain with activity, Denies edema, Denies irregular heart rhythm, Denies claudication, Denies dyspnea, Denies dyspnea on exertion, Denies orthopnea, Denies paroxysmal nocturnal dyspnea and Denies slow heart rate Resp Denies cough, Denies dyspnea and Denies dyspnea on exertion GI Denies abdominal pain, Denies change in bowel habits, Denies excessive flatus, Denies nausea and Denies vomiting Denies urinary incontinence, Denies urinary hesitancy and Denies urinary urgency Musc Denies atrophy, Denies deformity and Denies limited range of motion Physical exam (Primary Care) Vital Signs: Last Vital Signs BP 130/78 12/31/24 16:35 BMI result Body Mass Index 35.5 Tobacco/Smoking Status: Tobacco use Status Tobacco use date assessed 12/31/24 12/31/24 16:40 Patient Tobacco Use Status Never used Tobacco 12/31/24 16:40 e-Cigarette/Vaping Use Never Used 12/31/24 16:40 PHQ-9: PHQ-9 Score PHQ-9: Total score 0 12/31/24 16:46 Depression Screening Interpretation: Negative Thrive Assessment: Date of Thrive Assessment Date Thrive assessed 12/24/24 12/31/24 16:40 Currently or been in a relationship where the following occur: No concerns reported Resp Effort & Inspection: normal respiratory effort Auscultation: clear to auscultation bilaterally Cardio Jugular venous distension: no JVD Rate: regular rate Rhythm: regular rhythm Heart sounds: S1 normal heart sound present and S2 normal heart sound present Extrem General: Yes full ROM Coding Level of Care Code Est Pt Level 4 (20686) Complex EM visit Add On G2211 Diagnoses Essential hypertension I10 Postoperative hypothyroidism E89.0 Dyslipidemia E78.5 Impaired glucose tolerance R73.02 Additional Codes BALBIR-7 Assessment Billing - BALBIR-7 Assessment Tool: BALBIR-7 Assessment 04383 ([id number]) PHQ-9 - 99699 - PHQ-9 Billing: Yes ([id number]) Time Spent (min) 20 Assessment & Plan Assessment & Plan (1) Essential hypertension: Code(s): I10 - Essential (primary) hypertension Category: Medical (2) Postoperative hypothyroidism: Code(s): E89.0 - Postprocedural hypothyroidism Category: Medical (3) Dyslipidemia: Code(s): E78.5 - Hyperlipidemia, unspecified Category: Medical (4) Impaired glucose tolerance: Code(s): R73.02 - Impaired glucose tolerance (oral) Category: Medical Plan The patient should continue her current hypertension management plan, including lifestyle modifications such as weight management. She should maintain her lovastatin therapy for hyperlipidemia and adhere to dietary recommendations. Preventative care measures include scheduling a bone density screening and ensuring the mammogram is completed as planned. Patient was informed and verbally consented to the use of an ambient scribe for clinic note documentation during this visit. Orders: Orders Lipid Panel Today E78.5 - Hyperlipidemia, unspecified Comprehensive [place]. Panel Fast Today R73.02 - Impaired glucose tolerance (oral) Thyroid Stimulating Hormone Today E89.0 - Postprocedural hypothyroidism
[2024-12-31 16:35] VITALS: BP 130/78; BMI 35.5
== END 2024-12-31 16:48 | disposition home or self-care (01) ==
LOC: HO.HMCH 16:03
PROVIDERS: PCP Internal Medicine; Visit Provider Internal Medicine
DX: I10 Essential (primary) hypertension (principal); E89.0 Postprocedural hypothyroidism; E78.5 Hyperlipidemia, unspecified; R73.02 Impaired glucose tolerance (oral)

== ENCOUNTER → 2024-12-31 16:03 | Outpatient (BNVA) | payer MEDICARE, SELFPAY | PROVIDERS: PCP Internal Medicine; Visit Provider Internal Medicine | DX: I10 Essential (primary) hypertension (principal); E89.0 Postprocedural hypothyroidism; E78.5 Hyperlipidemia, unspecified; R73.02 Impaired glucose tolerance (oral) | CPT/HCPCS: 96127; 99212 ==

== ENCOUNTER 2025-01-22 15:25 | Outpatient (REF) | payer MEDICARE, SELFPAY ==
--- OUTSIDE RECORDS SUMMARY | 2025-01-22 15:28 | XMS_ITS | Patient Health Record ---
Author Organization [facility] Address [address] [place] [id number] Care Team Providers Care Medical Lead Name Role Phone Marilou Tao Primary Care Provider UnavailToby Lopez Jr Unavailable Reason For Referral No Information Medications Medication SIG (Take, Route, Fr equency, Duration) Notes Start Date End Date Status Lovastatin 40 MG 1 tablet with the ev ening meal Orally Once a day for 30 day(s) Active Aleve 220 MG 2 tablet with food o r milk as needed Orally daily /when needed Active Immunizations Vaccine Route Administration Date Status Comme nts Influenza Unknown 05/15/2018 Administered Social History Tobacco Use: Social History Observation Description Date Details (start date - stop date) Never Smoker NA - NA Tobacco Use/Smoking Question Answer Notes Patient is a nonsmoker Alcohol Screen Question Answer Notes Did you have a drink containing alcohol in the p ast year? No Points 0 Interpretation Negative Problems Problem Type SNOMED Code ICD Code Onset Dates Problem Status W/U Status Risk Notes Problem 955131092 Colon cancer screening (Z12.11) Active confirmed Problem 466394798 residential (current) use of non-steroidal anti-inflammatorie s (NSAID) (Z79.1) Active confirmed Problem 178328089 Encounter for other preprocedural examination (Z01.818) Active confirmed Plan Of Treatment Future Test Test Name Order Date COLONOSCOPY 11/27/2018 Insurance Providers Payer Name Payer Address Payer Phone Subscriber Number Group Number Insured Name Patient Relationship to Insured Coverage Start Date Coverage End Date [employer] [address] [place], [place] [address] [id number] ANAHY SHERIDAN Self - patient is the insured Medical (General) History Medical History History ICD Code elevated cholesterol degenerative joint disease Surgical History Surgery Date(Month/Year) tonsillectomy age 5
== END 2025-01-22 15:26 | disposition home or self-care (01) ==
LOC: HO.MAMMO 15:25
PROVIDERS: PCP Internal Medicine; Visit Provider Internal Medicine
DX: Z12.31 Encounter for screening mammogram for malignant neoplasm of breast (principal)
CPT/HCPCS: 77063; 77067

== ENCOUNTER → 2025-01-22 16:00 | Outpatient (BNV) | payer MEDICARE, SELFPAY | PROVIDERS: PCP Internal Medicine; Visit Provider Internal Medicine | DX: Z12.31 Encounter for screening mammogram for malignant neoplasm of breast (principal) | CPT/HCPCS: 77063; 77067 ==

== ENCOUNTER 2025-02-26 08:52 | Outpatient (REF) | payer MEDICARE, SELFPAY ==
--- OUTSIDE RECORDS SUMMARY | 2025-02-26 09:12 | XMS_ITS | Patient Health Record ---
Author Organization [facility] Address [address] [place] [id number] Care Team Providers Care Neon Sign Servicer Name Role Phone Marilou Tao Primary Care [...] Problem Status W/U Status Risk Notes Problem 957586498 Colon cancer screening (Z12.11) Active confirmed Problem 992660501 senior living (current) use of non-steroidal anti-inflammatorie s (NSAID) (Z79.1) Active confirmed Problem 808142827 Encounter for other preprocedural examination (Z01.818) Active confirmed Plan Of Treatment Future Test Test Name Order Date COLONOSCOPY 11/27/2018 Insurance Providers Payer Name Payer Address Payer Phone Subscriber Number Group Number Insured Name Patient Relationship to Insured Coverage Start Date Coverage End Date [employer] [address] [place], [place] [address] [id number] ANAHY SHERIDAN Self - patient is the insured Medical (General) History Medical History History ICD Code elevated cholesterol degenerative joint disease Surgical History Surgery Date(Month/Year) tonsillectomy age 5
[2025-02-26 10:19] LABS: Alanine Aminotransferase 28 U/L (0-31); Albumin Level 4.5 g/dL (3.5-5.0); Alkaline Phosphatase 56 U/L (39-117); Anion Gap 16 (12-20); Aspartate Amino Transferase 25 U/L (5-31); Blood Urea Nitrogen 25 mg/dL (9-16); Calcium 10.0 mg/dL (8.4-10.2); Carbon Dioxide 23 mmol/L (22-29); Chloride 107 mmol/L (96-108); Cholesterol 193 mg/dL (<200); Estimated Glomerular Filt Rate > 60; HDL Cholesterol 54 mg/dL (>40); Potassium 3.6 mmol/L (3.3-5.1); Sodium 142 mmol/L (135-145); Total Protein 7.8 g/dL (6.5-8.0); Triglycerides 127 mg/dL (<150)
[2025-02-26 10:36] LABS: Thyroid Stimulating Hormone 0.75 uIU/mL (0.32-4.0)
== END 2025-02-26 08:53 | disposition home or self-care (01) ==
LOC: HO.LAB 08:52
PROVIDERS: Visit Provider Internal Medicine
DX: E89.0 Postprocedural hypothyroidism (principal); E78.5 Hyperlipidemia, unspecified; R73.02 Impaired glucose tolerance (oral)
CPT/HCPCS: 36415; 80053; 80061; 84443

== ENCOUNTER 2025-03-09 14:24 | Outpatient (REF) | payer MEDICARE, SELFPAY ==
--- NOTE | ~2025-03-09 | US_ITS ---
EXAMINATIONS: 1. MM DIAGNOSTIC DIGITAL BREAST TOMOSYNTHESIS, BILATERAL 2. Targeted ultrasound of the right breast 3. Targeted ultrasound of the left breast CLINICAL INFORMATION: Call back for bilateral breasts findings. Screening mammogram on January 22, 2025 describes that a few bilateral masses have slightly increased in size from prior. Right breast upper outer quadrant posterior depth and left breast upper outer quadrant and retroareolar region. COMPARISON: Comparison made to multiple prior, most recent January 22, 2025, and most remote November 29, 2020. TECHNIQUE: Digital breast tomosynthesis is performed in full-field ML 90 degrees along with computer-aided detection (CAD). Synthesized 2D images are generated from the tomosynthesis. Spot compression tomosynthesis images were also obtained. FINDINGS: BREAST COMPOSITION: There are scattered areas of fibroglandular density (ACR BI-RADS breast composition Category b). RIGHT BREAST: Previously marked masses in the upper outer quadrant posterior depth do not have suspicious features on today's additional views. Targeted ultrasound of the right breast was performed at the location of the mammographic findings. The survey throughout the upper outer quadrant shows multiple simple cysts and complicated cysts filled with hypoechoic content, the largest measuring 0.4 x 0.3 x 0.4 cm at 11 o'clock position 2 cm from the nipple. No abnormal vascularity demonstrated with color Doppler evaluation. LEFT BREAST: Previously marked masses in the upper outer quadrant and retroareolar region do not have suspicious features on today's additional views. Targeted ultrasound of the left breast was performed at the location of the mammographic findings. The survey throughout the upper outer quadrant and retroareolar region shows multiple simple cysts and complicated cysts field with hypoechoic content, the largest measuring 0.7 x 0.4 x 0.6 cm at 12 o'clock position 3 cm from the nipple. No abnormal vascularity demonstrated with color Doppler evaluation. US/US breast BI limited mamm only IMPRESSION: BILATERAL BREASTS: Multiple bilateral simple/complicated cysts without suspicious sonographic or mammographic features. Benign, no evidence of malignancy. Normal interval follow-up is recommended in 12 months. ASSESSMENT: BI-RADS 2 - Benign Findings RECOMMENDATION: 1 year F/U Results were provided to the patient at time of visit by the technologist. This patient's information was entered into a reminder system with a target due date for their next mammogram. Electronically signed by: Mary Spear MD 03/09/2025 04:38 PM EDT
--- OUTSIDE RECORDS SUMMARY | 2025-03-09 15:25 | XMS_ITS | Patient Health Record ---
Author Organization [facility] Address [address] [place] [id number] Care Team Providers Care Wool Fleece Grader Name Role Phone Marilou Tao Primary Care [...] Problem Status W/U Status Risk Notes Problem 069503699 Colon cancer screening (Z12.11) Active confirmed Problem 376561661 snf (current) use of non-steroidal anti-inflammatorie s (NSAID) (Z79.1) Active confirmed Problem 127907633 Encounter for other preprocedural examination (Z01.818) Active confirmed Plan Of Treatment Future Test Test Name Order Date COLONOSCOPY 11/27/2018 Insurance Providers Payer Name Payer Address Payer Phone Subscriber Number Group Number Insured Name Patient Relationship to Insured Coverage Start Date Coverage End Date [employer] [address] [place], [place] [address] [phone] [id number] NAAHY SHERIDAN Self - patient is the insured Medical (General) History Medical History History ICD Code elevated cholesterol degenerative joint disease Surgical History Surgery Date(Month/Year) tonsillectomy age 5
== END 2025-03-09 14:25 | disposition home or self-care (01) ==
LOC: HO.MAMMO 14:24
PROVIDERS: PCP Internal Medicine; Visit Provider Internal Medicine
DX: N63.11 Unspecified lump in the right breast, upper outer quadrant (principal); N63.21 Unspecified lump in the left breast, upper outer quadrant
CPT/HCPCS: 76642; 77062; 77066

== ENCOUNTER → 2025-03-09 15:00 | Outpatient (BNV) | payer MEDICARE, SELFPAY | PROVIDERS: PCP Internal Medicine; Visit Provider Radiology Body Imaging | DX: R92.8 Other abnormal and inconclusive findings on diagnostic imaging of breast (principal) | CPT/HCPCS: 76642; 77066; G0279 ==

== ENCOUNTER 2025-03-30 08:32 | Outpatient (AMB) | payer MEDICARE, SELFPAY ==
--- OUTSIDE RECORDS SUMMARY | 2025-03-25 06:00 | XMS_ITS ---
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 Operator Name Role Phone Guillermina DAMON, Marilou Primary Care Provider Unavail able Black, Jacquie Unavailable [phone] Allergies No Known Allergies REASON FOR VISIT pcp- 02/2025, Open sore - Toe, Left foot Medications Medication SIG (Take, Route, Frequency, Duration) Notes Start Date End Date Status Ciclopirox 0.77 % 1 application to aff ected area Externally Twice a day to effected nails; Duration: 30 days 03/11/2025 Active Cephalexin 500 MG 1 capsule Orally twi ce a day; Duration: 10 days Active Lovastatin 40 MG as directed Orally Active Tylenol Active Losartan Potassium 50 MG 1 tablet Orally Once a day Active Social History Tobacco Use: Social History Observation Description Date Details (start date - stop date) Never Smoker NA - NA Tobacco use other than smoking: Question Answer Notes Are you an other tobacco user? No Tobacco Control (Standard) Question Answer Notes Tobacco use: Nonsmoker Additional Findings: Tobacco non-user Current no nsmoker AUDIT-C (Standard) Question Answer Notes Did you have a drink containing alcohol in the p ast year? No Points 0 Interpretation Negative Problems Problem Type SNOMED Code ICD Code Onset Dates Problem Status W/U Status Risk Notes Problem Ulcer of toe of left foot (disorder) (99512174011 [id number]) Skin ulcer of toe of left foot, limited to breakdown of skin (L97.521) Active confirmed Vital Signs Height 5ft 4in in 03/25/2025 Weight 195 lbs 03/25/2025 BMI 33.47 kg/m2 03/25/2025 Blood pressure systolic 132 mm Hg 03/25/20 25 Blood pressure diastolic 85 mm Hg 025 Procedures Procedure Date Ordered Date Performed Result Body Sit e 89481- Debride <25 sq cm 03/25/2025 N/A Encounters Encounter Location Date Provider Diagnosis [facility] [place] [address] [place] [address] 03/25/2025 Jacquie Black Skin ulcer of toe of left foot, limited to breakdown of skin L97.521 Assessments Encounter Date Diagnosis (ICD Code) Assessment Notes Treatment Notes Treatment Clinical Notes Section Notes 03/25/2025 Skin ulcer of toe of left foot, limited to breakdown of skin (ICD-10 - L97.521) Patient Educated with: WOUND CARE INSTRUCTIONS.p df (WOUND CARE INSTRUCTIONS.p df) Plan Of Treatment Treatment Notes Assessment Notes Skin ulcer of toe of left fo ot, limited to breakdown of skin Patient Educated with: WOUND CARE INSTRUCTIONS.pdf (WOUND CARE INSTRUCTIONS.pdf) Pending Test Test Name Order Date 73494- Debride <25 sq cm 03/25/2025 Next Appt Details Follow Up: prn, Reason: Procedure Notes * Category Sub-Category Detail Notes Debride skin< 25 sq cm Open wound Physician of record performed open wound selective debridement of first 25 sq cm or less, of devitilized necrotic/nonviable soft tissue, fibrin, and exudate extending from the epidermis through the dermis, utilizing sharp dissection with sterile 15 blade, and/or tissue nippers. Sterile antibiotic dressing applied, ANESTHESIA- was accomplished TOPICALLY with Lidocaine Hydrochloride Jelly 2 percent. Hemostasis was achieved through direct pressure. Post debridement measurements: 10 mm x _3_ mm x 2mm. Character of the wound post debridement is stable (14788), The patient was instructed on importance of proper wound care consisting of pressure reduction, maintainance of moist wound environment, and regular debridement of devitilized tissue, The patient is to cleanse the wound with warm soapy water/peroxide/saline or betadine BID based on product availability, The patient is to apply Antibiotic Oint. to the wound and cover with a DSD, The patient is to cont the local wound care as directed till condition is completely healed Progress Notes * Rose Marie SHERIDAN ADOB:[birth year] (70 yo F)Acc No.[id number]:03/25/2025 Progress Notes Patient: Rose Marie ESQUIVEL Provider: Deedee Merirll DPM :1955 A ge:70 Y S ex:Female Date:03/25/2025 Address:[address] [place], [place] [id number] Pcp:Marilou Sarmiento MD Subjective: * Chief Complaints: * P cp- 8Open sore - Toe, Left foot * HPI: S kin problems: Nature: O pen sore. Treatments: T opical abx, soaks. * ROS: G eneral/Constitutional: Nausea d enies. V omiting d enies. H derik Thirst d enies. L oss appetite d enies. C hills d enies. F atigue d enies.?Fever d enies. N ight Sweats d enies. U nexplained weight loss d enies. U nexplained weight gain d enies. H EENTM: Dentures a dmits. D izziness d enies. G lasses/contacts a dmits. R etinopathy d enies. B lurred/double vision d enies. T MJ?denies. D ischarge/drainage d enies. I mplants d enies. S ore throat d enies. D ental implants d enies. H eduarda of hearing d enies. D ifficulty chewing/swallowing/speaking d enies. N ose bleeds d enies. S ore mouth d enies. ? R espiratory: On Oxygen d enies. P neumonia/pleurisy d enies.?Bronchitis a dmits. E mphysema d enies. C oughing d enies. C ough blood?denies. S hortness of breath d enies. W heezing d enies. C ardiovascular: Pacemaker d enies. M INGREDIENT MIXER d enies. W PW d enies. C HF d enies. H eart attack d enies. S eptal defect d enies. R apid beat d enies. C hest pain d enies. A trial Fib. d enies. M urmur/Palpitations d enies. G astrointestinal: Hemorrhoids d enies. S tomach/Abdominal pain d enies. D ark blood stool d enies. I rritable bowel d enies. C onstipation d enies. D iarrhea d enies. H ematology: Swelling d enies. C lots d enies. V aricose Veins d enies. B ruising d enies. B leeding problem d enies. G enitourinary: Blood urine d enies. F requent/Painfu/urination/bladder control d enies. K idney stones d enies. I nfection (UTI) d enies. N ephropathy d enies. s ex trans dis (STD) d enies. P rostate d enies. M usculoskeletal: Hammertoes d enies. B unions d enies. B ack Pain d enies. M uscle Cramps/ Resting d enies. M uscle cramps / walking d enies.?Generalized aches and pains a dmits. W eakness d enies. I nteg.: Hagen d enies. S cars d enies. C orns/calluses?denies. I ngrown nails d enies. P ainful nails d enies. O pen Sores d enies. R ashes d enies. N eurologic: Difficulty sleeping d enies. B rain disorder d enies. N umbness d enies. B alance trouble d enies. C onfusion d enies. F ainting/blackouts d enies. T ingling d enies. T remors d enies. * Medical History: * Surgical History: t onsillectomy 1960thyroidectomy 07/04/2020 * Hospitalization/Major Diagno stic Procedure: D enies Past Hospitalization * Family History: M other: , stroke, diagnosed with Unspecified heart disease, Family history of arthritis. F ather: , foot problems, heart attack, diagnosed with Other malignant neoplasm of unspecified site, Unspecified heart disease, Other specified conditions influencing health status.?Paternal aunt: kidney/Liver Disease, diagnosed with Other specified conditions influencing health status. P aternal uncle: Heart attack, diagnosed with Unspecified heart disease. S iblings: Sisters- Cancer, diagnosed with Other malignant neoplasm of unspecified site. M bennie Grand Mother: diagnosed with Unspecified cerebral artery occlusion with cerebral infarction. M bennie Grand Father: diagnosed with Other malignant neoplasm of unspecified site. * Social History: T obacco Use: T obacco use other than smoking A re you an other tobacco user? N o Tobacco Control (Standard) T obacco use: N onsmoker A dditional Findings: Tobacco non-user C urrent nonsmoker M iscellaneous: C affeine: yes, soda 1 per week. Children: yes, 2. 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 Marital status: single. 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 D rug/Alcohol: A YULIET-C (Standard) D id you have a drink containing alcohol in the past year? N o P oints 0 I nterpretation N egative * Medications: T akingLosartan Potassium 50 MG Tablet 1 tablet Orally Once a day Tylenol Lovastatin 40 MG Tablet as directed Orally Cephalexin 500 MG Capsule 1 capsule Orally twice a day Ciclopirox 0.77 % Gel 1 application to affected area Externally Twice a day to effected nails Medication List reviewed and reconciled with the patientTaking Losartan Potassium 50 MG Tablet 1 tablet Orally Once a day Taking Tylenol Taking Lovastatin 40 MG Tablet as directed Orally Taking Cephalexin 500 MG Capsule 1 capsule Orally twice a day Taking Ciclopirox 0.77 % Gel 1 application to affected area Externally Twice a day to effected nails Medication List reviewed and reconciled with the patient * Allergies: N .K.D.A.yes[Allergies Verified] Objective: * Vitals: H t: 5ft 4in, Wt:195, BMI:33.47, Shoe size: 8, BP:132/85mm Hg, Ht-cm: 162.56 cm, Wt-k.45 kg. * Examination: D ermatologic: ULCER: LOCATION, Dorsal, __TA,_ SIZE, 9mm X 4mm X 1-2mm, BASE, granular to epithelialized, RIM, hyperkeratotic, UNDERMINING, absent, TRACKING, Partial to, Full thickness breakdown of skin, DRAINAGE, serosanguineous, mild, NECROTIC TISSUE, loosely-adherent, yellow slough, MALODOR, absent, CALOR, absent, ERYTHEMA, absent, PAIN ON PALPATION, mild. Assessment: * Assessment: 1. S kin ulcer of toe of left foot, limited to breakdown of skin - L97.521 (Primary) Plan: * Treatment: * Procedures: D ebride skin< 25 sq cm: Open wound P hysician of record performed open wound selective debridement of first 25 sq cm or less, of devitilized necrotic/nonviable soft tissue, fibrin, and exudate extending from the epidermis through the dermis, utilizing sharp dissection with sterile 15 blade, and/or tissue nippers. Sterile antibiotic dressing applied, ANESTHESIA- was accomplished TOPICALLY with Lidocaine Hydrochloride Jelly 2 percent. Hemostasis was achieved through direct pressure. Post debridement measurements: 10 mm x _3_ mm x 2mm. Character of the wound post debridement is stable (85944), The patient was instructed on importance of proper wound care consisting of pressure reduction, maintainance of moist wound environment, and regular debridement of devitilized tissue, The patient is to cleanse the wound with warm soapy water/peroxide/saline or betadine BID based on product availability, The patient is to apply Antibiotic Oint. to the wound and cover with a DSD, The patient is to cont the local wound care as directed till condition is completely healed. ? * Procedure Codes: 9 7597 ACTIVE WOUND CARE/20 CM OR <, Modifiers: TA * Follow Up: p rn * Images: * Sign off status: Completed true * Provider: Deedee Merrill DPM Date: 03/25/2025 Generated for Sky bowles/Nesha/Yovany on: 0 03/30/2025 10:10 AM EDT History and Physical Notes * HPI (History of Present Illness) Category Sub-Category Detail Notes Category Not es Skin problems Nature: Open sore Treatments: Topical abx, soaks Examination Category Sub-Category Detail Notes Category Not es Dermatologic ULCER: LOCATION, Dorsal , __TA,_ SIZE, 9mm X 4mm X 1-2mm, BASE, granular to epithelialized, RIM, hyperkeratotic, UNDERMINING, absent, TRACKING, Partial to, Full thickness breakdown of skin, DRAINAGE, serosanguineous, mild, NECROTIC TISSUE, loosely-adherent, yellow slough, MALODOR, absent, CALOR, absent, ERYTHEMA, absent, PAIN ON PALPATION, mild
--- NOTE | 2025-03-30 08:45 | A.OFFVIS_ITS ---
Intake Vital Signs 03/30/25 08:47 Height 5 ft 4 in Weight 210 lb 8 oz BMI 36.1 BP 142/78 H Blood Pressure Location Lt brachial Position Sitting Pulse 86 Pulse Source Pulse Oximeter Temp 96.9 F Temp Source Temporal Artery Scan Pulse Oximetry (%) 98 Oxygen Delivery Method Room Air Intake Visit Reasons: EMILY G0439 Intake Note: Patient is here for an Annual Wellness Visit. Pipe Changer Required: No Cutting Torch Operator: Cutting Torch Operator offered & declined Accompanied by: Self / Same As Patient Allergies No Known Allergies Allergy (Verified 03/30/25 09:19) Medication List - Last Reconciled 03/30/25 by Marilou Reed MD losartan 50 mg PO DAILY 90 days lovastatin 40 mg PO DAILY 90 days HPI HPI Comments History of Present Illness Details The patient is a 70-year-old female presenting for a Medicare wellness exam. [facility] handed to patient. [place] of care reviewed and updated. She has a history of thyroid surgery and tonsillectomy with adenoidectomy. Her family history includes congestive heart failure and Alzheimer's disease. Her last mammogram was conducted last month and returned normal results. The bone density test conducted in 2022 also showed normal results. The patient has had a colonoscopy in 2018, with the next one scheduled for 2028. Her last Tdap vaccine was in 2015, with the next one due in 2025. She has been advised to receive the PCV20 pneumonia vaccine, which she has not yet received. The patient reports her blood pressure is usually normal at home, despite being slightly elevated during today's visit. Recent blood work showed normal results for sugar, kidney, liver, and cholesterol levels. - Mammogram: Normal results last month - Bone density test: Normal results in 2 023 - Colonoscopy: Last in 2018, next due in 2028 - Tdap vaccine: Last in 2015, next due i n 2025 - PCV20 pneumonia vaccine: Recommended a nd administered today. [facility] Medical History Hypercalcemia Bilateral primary osteoarthritis of knee Elevated blood pressure reading in office without diagnosis of hypertension Left leg swelling Obese Dyslipidemia Postoperative hypothyroidism Surgical History History of colonoscopy History of thyroid surgery History of tonsillectomy and adenoidectomy Family History Father CVD (cardiovascular disease) CHF (congestive heart failure) Mother Chronic mental illness Alzheimers disease Family/Other FH: mental illness Social History Housing: House Alcohol intake: never Patient Tobacco Use Status: Never used Tobacco e-Cigarette/Vaping Use: Never Used Second Hand Smoke Exposure: No service: No Current occupational status: employed and retired Current occupational exposures/hazards: No Cognitive needs: No Hearing needs: No Vision needs: Yes Questionnaire Medicare Wellness Checkup [age] What gender do you identify with?: female During the past 4 weeks, how much have you been bothered by emotional problems such as feeling anxious, depressed, irritable, sad or downhearted, and blue?: slightly During the past 4 weeks, has your physical & emotional health limited your social activities with family, friends, neighbors, or groups?: not at all During the past 4 weeks, how much bodily pain have you generally had?: no pain During the past 4 weeks, was someone available to help you if you needed & wanted help?: yes, as much as I wanted During the past 4 weeks, what was the hardest physical activity you could do for at least 2 minutes?: very heavy Can you get to places out of walking distance without help? (For eg., can you travel alone on buses, taxis or drive your car?): Yes Can you go shopping for groceries or clothes without someone's help?: Yes Can you prepare your own meals?: Yes Can you do your housework without help?: Yes Because of any health problems, do you need the help of another person with your personal care needs such as eating, bathing, dressing or getting around the house?: No Can you handle your own money without help?: Yes During the past 4 weeks, how would you rate your health in general?: very good During the past 4 weeks how have things been going for you?: pretty well Are you having difficulties driving your car?: no Do you always fasten your seat belt when you are in a car?: yes, usually During past 4 weeks, have you been bothered by the following: never: Falling or dizzy when standing up, Sexual problems?, Trouble eating well?, Teeth or denture problems?, Problems using the telephone? and Tiredness or fatigue? Have you fallen 2 or more times in the past year?: No Are you afraid of falling?: No Are you a smoker?: no During the past 4 weeks, how many drinks of wine, beer, or other alcoholic beverages did you have?: no alcohol at all Do you exercise for about 20 minutes 3 or more times a week?: yes, all the time Have you been given information to help with the following?: yes: Hazards in your house that might hurt you? and yes: Keeping track of your medications? How often do you have trouble taking medicines the way you have been told to take them?: I always take medicine as prescribed How confident are you that you can control & manage most of your health problems?: very confident What is your race?: White Mini Mental State Exam (MMSE) Orientation What is the (year) (season) (date) (day) (month)?: year, season, date, day and month Where are we (state) (county) (town or city) (hospital) (floor)?: state, county, town or city, hospital/clinic and floor Registration Name of 3 unrelated objects clearly and slowly, then ask patient to repeat all 3 of them. (1st repeat determines score. Make sure they can repeat all three): object 1, object 2 and object 3 Attention & Calculation (CHOOSE ONE) Spell WORLD backwards (DLROW): 5 letters Recall Ask patient to repeat the 3 items from question #3.: object 1, object 2 and object 3 Language Show patient a wristwatch & ask what it is. Repeat for pencil.: watch and pencil Ask the patient to repeat the phrase 'No ifs, ands, or buts' after you.: correct Ask the patient to 'take a piece of paper with their right hand' 'fold paper in half' 'place paper on floor': take paper in right hand, fold paper in half and place paper on floor Print the sentence 'CLOSE YOUR EYES' on a piece. If patient actually closes eyes then score.: followed written direction Give patient a blank piece of paper & ask to write a sentence. Score if it contains a noun & verb.: sentence contains subject and verb Ask patient to copy figure of intersecting pentagons exactly. Score if all 10 angles & 2 intersects are included.: all 10 angles present & 2 are intersected Score Score: 30 Activity of Daily Living Bathing - sponge bath, tub bath or shower: receives no assistance (gets in/out by self, if usual bathing means Dressing - getting clothes from closets & drawers, including inner/outer garments & fasteners.: gets clothes & gets completely dressed without help Toileting - going to the 'toilet room' for urine/bowel elimination & cleaning self/arranging clothes: goes to toilet room, cleans self, arranges clothes without help Transfer: moves in & out of bed and chair without help (may use support object) Continence: controls urination/bowel movements completely by self Feeding: feeds self without help Total Score: 0 Information obtained from: patient Using telephone: independent Traveling: independent Shopping: independent Preparing meals: independent Housework: independent Taking medicine: independent Managing money: independent PHQ-9 Over the last 2 weeks, how often have you been bothered by any of the following problems? 1. Little interest or pleasure in doing things: not at all 2. Feeling down, depressed, or hopeless: not at all 3. Trouble falling or staying asleep, or sleeping too much: not at all 4. Feeling tired or having little energy: not at all 5. Poor appetite or overeating: not at all 6. Feeling bad about yourself - or that you are a failure or have let yourself or your family down: not at all 7. Trouble concentrating on things, such as reading the newspaper or watching television: not at all 8. Moving or speaking so slowly that other people could have noticed. Or the opposite - being so fidgety or restless that you have been moving around a lot more than usual: not at all 9. Thoughts that you would be better off or of hurting yourself in some way: not at all Total score: 0 Depression Screening Interpretation: Negative Depression Screening Done: Yes 42152 - PHQ-9 Billing: Yes Source: Developed by Drs. Mauri Wilks, Thea Chew, Wyatt Alicea and colleagues, with an educational gillian from [employer] Thrive Questionnaire Date Thrive assessed: 12/24/24 I am a: Patient What is your living situation today?: I have a steady place to live Within the past 12 months, did the food you bought not last and you didn't have the money to get more?: Never true Within the past 12 months, did you worry whether your food would run out before you got money to buy more?: Never true Do you have trouble paying for medicines?: No Do you have trouble getting transportation to medical appointments?: No Do you have trouble paying your heating and electricity bill?: No Do you have trouble taking care of your child, family member or friend?: I choose not to answer this question Do you have trouble with day-to-day activities such as bathing, preparing meals, shopping, managing finances, etc.?: No Are you currently unemployed and looking for a job?: No Are you interested in more education?: No Please select the resources that you would like help with: None Currently or been in a relationship where the following occur: No concerns reported THRIVE Score: 0 BALBIR-7 AMB Questionnaire BALBIR-7 Date BALBIR - 7 assessed: 12/31/24 Source: Developed by Drs. Mauri Wilks, Thea Chew, Wyatt Alicea and colleagues, with an educational gillian from [employer] Review of Systems Const All systems reviewed & are unremarkable except as noted in HPI and below Card Denies chest pain at rest, Denies chest pain with activity, Denies edema, Denies irregular heart rhythm, Denies claudication, Denies dyspnea, Denies dyspnea on exertion, Denies orthopnea, Denies paroxysmal nocturnal dyspnea and Denies slow heart rate Resp Denies cough, Denies dyspnea and Denies dyspnea on exertion Physical Exam Vital Signs: Last Vital Signs Temp 96.9 F 03/30/25 08:47 Pulse 86 03/30/25 08:47 BP 142/78 H 03/30/25 08:47 Pulse Ox 98 03/30/25 08:47 Oxygen Delivery Method Room Air 03/30/25 08:47 BMI result Body Mass Index 36.1 Const Orientation/consciousness: patient oriented x3 Resp Effort & Inspection: normal respiratory effort Auscultation: clear to auscultation bilaterally Cardio Jugular venous distension: no JVD Rate: regular rate Rhythm: regular rhythm Heart sounds: S1 normal heart sound present and S2 normal heart sound present Neuro General: patient oriented x3 and no focal motor deficits Romberg Test: Negative Extrem General: Yes full ROM Psych Appearance: grossly normal Immunizations pneumoc 20-jemal conj-dip cr(PF) 0.5 mL IM syringe Performing Provider: Marilou Reed MD [facility] Administered by: CELIA Smith on 03/30/25 09:36 Dose Route Admin Location Dispensed Lot Number Expiration Date [place] Equipment Or Machinery Cleaner 0.5 mL IM Left Deltoid 0.5 mL [id number] 03/15/26 7999-1039-14 [employer] Total Dispensed Waste 0.5 mL 0 % VIS Given Date VIS Provided VIS Publication Date 03/30/25 Single Vaccine 24 Eligibility Eligibility Date Funding Source Not [facility] Eligible 03/30/25 Private Assessment & Plan Assessment & Plan (1) Encounter for Medicare annual wellness exam: Code(s): Z00.00 - Encounter for general adult medical examination without abnormal findings Plan Plan Patient was informed and verbally consented to the use of an ambient scribe for clinic note documentation during this visit. 1. Encounter for general adult medical examination without abnormal findings Z00.00 The patient is up to date with her mammogram and bone density screenings, both of which returned normal results. She is due for a colonoscopy in 2028 and a Tdap vaccine in 2025. The PCV20 pneumonia vaccine is recommended and can be administered during the next visit. Orders: Orders 2 Pneumococcal 20 Immunization Today Z23 - Encounter for immunization Quality Reporting (2019) Depression/Bipolar (159/160/161/177) PHQ-9: Total score: 0 Coding Level of Care Code Medicare Subsequent (G0439) Diagnoses Encounter for Medicare annual wellness exam Z00.00 Additional Codes PHQ-9 - 14281 - PHQ-9 Billing: Yes ([id number]) Time Spent (min) 35 Advance Care Planning Advance Care Planning discussion: Exists, not on file Date of discussion: 03/30/25 Who was present: patient and me Forms completed: Health Care Proxy
[2025-03-30 08:47] VITALS: BP 142/78; PULSE 86; TEMP 36.1; O2SAT 98; BMI 36.1
--- OUTSIDE RECORDS SUMMARY | 2025-03-30 10:11 | XMS_ITS | Patient Health Record ---
Author Organization [facility] Address [address] [place] [address] Care Team Providers Care Medical Videographer Name Role Phone Marilou Sarmiento MD Primary Care Provider Unavail able Black, Jacquie Unavailable [phone] Allergies No Known Allergies Reason For Referral No Information Medications Medication SIG (Take, Route, Frequency, Duration) [...] 1 tablet Orally Once a day Active Immunizations Vaccine Route Administration Date Status Comme nts Influenza Unknown 03/15/2024 Administered Social History Tobacco Use: Social History [...] Ulcer of toe of left foot (disorder) ([id number]) Skin ulcer of toe of left foot, limited to breakdown of skin (L97.521) Active confirmed Vital Signs Blood pressure diastolic 85 mm Hg 03/25/2025 Height 5ft 4in in 03/25/2025 Blood pressure systolic 132 mm Hg 03/25/2025 Weight 195 lbs 03/25/2025 BMI 33.47 kg/m2 03/25/2025 Procedures Procedure Date Ordered Date Performed Result Body Sit e 89228-Btttmkuo Plate 03/11/2025 N/A 95760- Debride <25 sq cm 03/25/2025 N/A Encounters Encounter Location Date Provider Diagnosis [facility] [address] 03/11/2025 Jacquie Black Cellulitis of toe of left foot L03.032 ; Ingrown nail L60.0 ; Pain in left toe(s) M79.675 ; Pain in right toe(s) M79.674 ; Onychomycosis B35.1 and Pain in left toe(s) M79.[address] [address] 03/25/2025 Jacquie Black Skin ulcer of toe of left foot, limited to breakdown of skin L97.521 [facility] [address] 03/10/2025 Jacquie Black Assessments Encounter Date Diagnosis (ICD Code) Assessment Notes Treatment Notes Treatment Clinical Notes Section Notes 03/11/2025 Ingrown nail (ICD-10 - L60.0) T1 03/11/2025 Cellulitis of toe of left foot (ICD-10 - L03.032) TA 03/25/2025 Skin ulcer of toe of left foot, limited to breakdown of skin (ICD-10 - L97.521) Patient Educated with: WOUND CARE INSTRUCTIONS.p df (WOUND CARE INSTRUCTIONS.p df) 03/11/2025 Pain in left toe(s) (ICD-10 - M79.675) 03/11/2025 Pain in right toe(s) (ICD-10 - M79.674) 03/11/2025 Onychomycosis (ICD-10 - B35.1) 03/11/2025 Pain in left toe(s) (ICD-10 - M79.675) Plan Of Treatment Pending Test Test Name Order Date [id number]-Edqcjrpm Plate 04/12/2022 56210-Jgqcvtar Plate 03/11/2025 51023- Debride <25 sq cm 03/25/2025 13335- Debride <25 sq cm 04/30/2022 85018- Debride <25 sq cm 05/02/2017 Insurance Providers Payer Name Payer Address Payer Phone Subscriber Number Group Number Insured Name Patient Relationship to Insured Coverage Start Date Coverage End Date Medicare National Govt [employer] [address] [facility] [address] [id number] Rose Marie Cordon Self - patient is the insured [employer] [address] [place] [address] [phone] [id number] Rose Marie Cordon Self - patient is the insured Medical (General) History Medical History History ICD Code Arthritis Cholesterol Measles Mumps Chicken pox Back,Hip,and Knee pain thyroid cortisone shot in knees 11/27/2021 Surgical History Surgery Date(Month/Year) tonsillectomy 1960 thyroidectomy 07/04/2020
--- OUTSIDE RECORDS SUMMARY | 2025-03-30 10:11 | XMS_ITS | Patient Health Record ---
Author Organization [facility] Address [address] [place] [address] Care Team Providers Care Arborist Name Role Phone Marilou Tao Primary Care Provider UnavailToby Lopez Jr Unavailable [phone] Reason For Referral No Information Medications Medication [...] Problem Status W/U Status Risk Notes Problem [id number] Colon cancer screening (Z12.11) Active confirmed Problem [id number] senior care (current) use of non-steroidal anti-inflammatorie s (NSAID) (Z79.1) Active confirmed Problem [id number] Encounter for other preprocedural examination (Z01.818) Active confirmed Plan Of Treatment Future Test Test Name Order Date COLONOSCOPY 11/27/2018 Insurance Providers Payer Name Payer Address Payer Phone Subscriber Number Group Number Insured Name Patient Relationship to Insured Coverage Start Date Coverage End Date [employer] [address] [place], [place] [address] [phone] [id number] ANAHY SHERIDAN Self - patient is the insured Medical (General) History Medical History History ICD Code elevated cholesterol degenerative joint disease Surgical History Surgery Date(Month/Year) tonsillectomy age 5
== END 2025-03-30 09:40 | disposition home or self-care (01) ==
LOC: HO.HMCH 08:32
PROVIDERS: PCP Internal Medicine; Visit Provider Internal Medicine
DX: Z00.00 Encounter for general adult medical examination without abnormal findings (principal); Z23 Encounter for immunization

== ENCOUNTER → 2025-03-30 08:32 | Outpatient (BNVA) | payer MEDICARE, SELFPAY | PROVIDERS: PCP Internal Medicine; Visit Provider Internal Medicine | DX: Z00.00 Encounter for general adult medical examination without abnormal findings (principal); Z23 Encounter for immunization | CPT/HCPCS: 90471; 90677; 96127 ==

== ENCOUNTER 2025-05-14 09:18 | Outpatient (AMB) | payer MEDICARE, SELFPAY ==
[2025-05-14 09:23] VITALS: BP 130/90; PULSE 90; TEMP 36.2; O2SAT 98; BMI 35.4
--- NOTE | 2025-05-14 09:23 | A.OFFPC_ITS ---
Vital Signs 05/14/25 09:23 Height 5 ft 4 in Weight 206 lb 8 oz BMI 35.4 BP 130/90 H Blood Pressure Location Lt brachial Position Sitting Pulse 90 Pulse Source Pulse Oximeter Temp 97.1 F Temp Source Temporal Artery Scan Pulse Oximetry (%) 98 Oxygen Delivery Method Room Air Intake Visit Reasons: [facility] 05/10 possible heart attack Intake Note: Patient is here to follow-up after a visit the emergency department at [facility] on 05/10/25 Bottle House Cleaners Supervisor Required: No Contracts Specialist: Not Required per policy Accompanied by: Self / Same As Patient Allergies No Known Allergies Allergy (Verified 05/14/25 09:24) Tobacco use date assessed: 05/14/25 Fall risk assessment: No Falls in past year Last assessed Fall Risk: 05/14/25 Dental Screening Dental Screen Date: 05/14/25 HPI HPI Comments History of Present Illness Details 70 y/o Female patient [facility] today for EDF. Past Medical History: Hypertension, Hyperlipidemia, and Multiple Thyroid Nodules s/p Partial Thyroidectomy. She was admitted to [facility] on 05/10 for evaluation and treatment of palpitations. The patient reported feeling ?funny? inside her chest along with shortness of breath. Her Apple Watch showed a heart rate in the 130s. She denied chest pain, fever, chills, wheezing, or headaches. ED Workup: ECG: Sinus tachycardia with premature atrial contractions (PACs); no atrial fibrillation. Laboratory results: Unremarkable. Chest X-ray: Negative for acute findings. Today; The patient is asymptomatic and reports no current concerns. [facility] Medical History (Updated 05/14/25 @ 10:25 by Lori Waters NP) Heart palpitations Hypercalcemia Bilateral primary osteoarthritis of knee Elevated blood pressure reading in office without diagnosis of hypertension Left leg swelling Obese Dyslipidemia Postoperative hypothyroidism Surgical History History of colonoscopy History of thyroid surgery History of tonsillectomy and adenoidectomy Family History Father CVD (cardiovascular disease) CHF (congestive heart failure) Mother Chronic mental illness Alzheimers disease Family/Other FH: mental illness Social History Housing: House Alcohol intake: never Patient Tobacco Use Status: Never used Tobacco e-Cigarette/Vaping Use: Never Used Second Hand Smoke Exposure: No service: No Current occupational status: employed and retired Current occupational exposures/hazards: No Cognitive needs: No Hearing needs: No Vision needs: Yes Questionnaire PHQ-9 Over the last 2 weeks, how often have you been bothered by any of the following problems? 1. Little interest or pleasure in doing things: not at all 2. Feeling down, depressed, or hopeless: not at all 3. Trouble falling or staying asleep, or sleeping too much: not at all 4. Feeling tired or having little energy: not at all 5. Poor appetite or overeating: not at all 6. Feeling bad about yourself - or that you are a failure or have let yourself or your family down: not at all 7. Trouble concentrating on things, such as reading the newspaper or watching television: not at all 8. Moving or speaking so slowly that other people could have noticed. Or the opposite - being so fidgety or restless that you have been moving around a lot more than usual: not at all 9. Thoughts that you would be better off or of hurting yourself in some way: not at all Total score: 0 Source: Developed by Drs. Mauri Wilks, Thea Chew, Wyatt Alicea and colleagues, with an educational gillian from [employer]. Thrive Questionnaire Date Thrive assessed: 12/24/24 I am a: Patient What is your living situation today?: I have a steady place to live Within the past 12 months, did the food you bought not last and you didn't have the money to get more?: Never true Within the past 12 months, did you worry whether your food would run out before you got money to buy more?: Never true Do you have trouble paying for medicines?: No Do you have trouble getting transportation to medical appointments?: No Do you have trouble paying your heating and electricity bill?: No Do you have trouble taking care of your child, family member or friend?: I choose not to answer this question Do you have trouble with day-to-day activities such as bathing, preparing meals, shopping, managing finances, etc.?: No Are you currently unemployed and looking for a job?: No Are you interested in more education?: No Please select the resources that you would like help with: None Currently or been in a relationship where the following occur: No concerns reported THRIVE Score: 0 AUDIT C Alcohol Use Questionnaire (AUDIT-C) 1. How often do you have a drink containing alcohol?: Never 3. How often do you have six or more drinks on one occasion?: Never Total Score: 0 Score Reviewed/Action Taken: No BALBIR-7 AMB Questionnaire BALBIR-7 Date BALBIR - 7 assessed: 12/31/24 Source: Developed by Drs. Mauri Wilks, Thea Chew, Wyatt Alicea and colleagues, with an educational gillian from [employer]. Review of Systems Const All systems reviewed & are unremarkable except as noted in HPI and below Physical exam (Primary Care) Vital Signs: Last Vital Signs Temp 97.1 F 05/14/25 09:23 Pulse 90 05/14/25 09:23 BP 130/90 H 05/14/25 09:23 Pulse Ox 98 05/14/25 09:23 Oxygen Delivery Method Room Air 05/14/25 09:23 BMI result Body Mass Index 35.4 Tobacco/Smoking Status: Tobacco use Status Tobacco use date assessed 05/14/25 05/14/25 09:29 Patient Tobacco Use Status Never used Tobacco 05/14/25 09:29 e-Cigarette/Vaping Use Never Used 05/14/25 09:29 PHQ-9: PHQ-9 Score PHQ-9: Total score 0 05/14/25 09:35 Thrive Assessment: Date of Thrive Assessment Date Thrive assessed 12/24/24 05/14/25 09:29 Currently or been in a relationship where the following occur: No concerns reported Const General: no acute distress Nutritional Appearance: obese Orientation/consciousness: patient oriented x3 Resp Effort & Inspection: normal respiratory effort Auscultation: clear to auscultation bilaterally Cardio Heart sounds: S1 normal heart sound present and S2 normal heart sound present Neuro General: patient oriented x3, gait normal and moves all extremities Psych Speech and movement: Normal speech and movement present Coding Level of Care Code Est Pt Level 4 (88844) Diagnoses Heart palpitations R00.2 Time Spent (min) 20 Assessment & Plan Assessment & Plan (1) Heart palpitations: Code(s): R00.2 - Palpitations Category: Medical Plan: Palpitations / Sinus Tachycardia with PACs ? resolved. Continue home medications as prescribed. Encourage adequate hydration and avoidance of caffeine or stimulants. Monitor for recurrence of palpitations, dizziness, or chest discomfort. Follow-up with Cardiology for possible Holter or event monitor.
--- OUTSIDE RECORDS SUMMARY | 2025-05-14 10:15 | XMS_ITS | Patient Health Record ---
Author Organization [facility] Address [address] [place] [address] Care Team Providers Care [employer] Baseball Coach Name Role Phone Marilou Tao Primary Care Provider UnavailToby Lopez Jr Unavailable Reason For Referral No Information Medications Medication SIG (Take, Route, Fr equency, Duration) Notes Start Date End Date Status Lovastatin 40 MG 1 tablet with the ev ening meal Orally Once a day; Duration: 30 day(s) Active Aleve 220 MG 2 [...] Problem Status W/U Status Risk Notes Problem Colon cancer screening (627341000) Colon cancer screening (Z12.11) Active confirmed 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 use of non-steroidal anti-inflammat ory drug ([id number] 03) nursing home (current) use of non-steroidal anti-inflammatori es (NSAID) (Z79.1) Active confirmed Problem Pre-procedure evaluation check (157545485) Encounter for other preprocedural examination (Z01.818) Active confirmed Plan Of Treatment Future Test Test Name Order Date COLONOSCOPY 11/27/2018 Insurance Providers Payer Name Payer Address Payer Phone Subscriber Number Group Number Insured Name Patient Relationship to Insured Coverage Start Date Coverage End Date [employer] [address] [place], [place] [address] [id number] ANAHY SHERIDAN Self - patient is the insured Medical (General) History Medical History History ICD Code elevated cholesterol degenerative joint disease Surgical History Surgery Date(Month/Year) tonsillectomy age 5
--- OUTSIDE RECORDS SUMMARY | 2025-05-14 10:16 | XMS_ITS | Patient Health Record ---
Author Organization [facility] Address [address] [place] [address] Care Team Providers Care Structural Steel Erection Supervisor Name Role Phone Marilou Sarmiento MD Primary Care Provider Unavail able Black, Jacquie Unavailable [phone] Allergies No Known Allergies Reason For Referral [...] Ulcer of toe of left foot (disorder) ([id number]) Skin ulcer of toe of left foot, limited to breakdown of skin (L97.521) Active confirmed Vital Signs Blood pressure diastolic 85 mm Hg 03/25/2025 Height 5ft 4in in 03/25/2025 Blood pressure systolic 132 mm Hg 03/25/2025 Weight 195 lbs 03/25/2025 BMI 33.47 kg/m2 03/25/2025 Procedures Procedure Date Ordered Date Performed Result Body Sit e 99241-[id number] Plate 03/11/2025 N/A 62454- Debride <25 sq cm 03/25/2025 N/A Encounters Encounter Location Date Provider Diagnosis [facility] [address] 03/11/2025 Jacquie Black Cellulitis of toe of left foot L03.032 ; Ingrown nail L60.0 ; Pain in left toe(s) M79.675 ; Pain in right toe(s) M79.674 ; Onychomycosis B35.1 and Pain in left toe(s) M79.[address] [address] 03/25/2025 Jacquie Black Skin ulcer of toe of left foot, limited to breakdown of skin L97.521 [facility] [address] 03/10/2025 Jacquie Black Assessments Encounter Date Diagnosis [...] Treatment Pending Test Test Name Order Date [id number] Plate 04/12/2022 [id number]-Sjopfsdv Plate 03/11/2025 24318- Debride <25 sq cm 03/25/2025 92779- Debride <25 sq cm 04/30/2022 91698- Debride <25 sq cm 05/02/2017 Insurance Providers Payer Name Payer Address Payer Phone Subscriber Number Group Number Insured Name Patient Relationship to Insured Coverage Start Date Coverage End Date Medicare National [employer] [address] [place] [address] [id number] Rose Marie Cordon Self - patient is the insured [employer] [address] [place] [address] [id number] Rose Marie Cordon Self - patient is the insured Medical (General) History Medical History History ICD Code Arthritis Cholesterol Measles Mumps Chicken pox Back,Hip,and Knee pain thyroid cortisone shot in knees 11/27/2021 Surgical History Surgery Date(Month/Year) tonsillectomy 1960 thyroidectomy 07/04/2020
== END 2025-05-14 10:17 | disposition home or self-care (01) ==
LOC: HO.HMCH 09:18
PROVIDERS: PCP Internal Medicine; Visit Provider Nurse Practitioner Family
DX: R00.2 Palpitations (principal)

== ENCOUNTER → 2025-05-14 09:18 | Outpatient (BNVA) | payer MEDICARE, SELFPAY | PROVIDERS: PCP Internal Medicine; Visit Provider Nurse Practitioner Family | DX: R00.2 Palpitations (principal) | CPT/HCPCS: 99212 ==